=== PATIENT | female | born 1940 | race Hispanic/Latino ===

== ENCOUNTER 2018-09-29 02:30 | Emergency (ER) | payer MEDICARE, BC ==
[2018-09-29] MEDS ORDERED: cloNIDine 0.1 MG TAB ONE (03:10)
== END 2018-09-29 04:08 | disposition short-term general hospital (02) ==
LOC: ERS 02:30
DX: I10 Essential (primary) hypertension (principal); M06.9 Rheumatoid arthritis, unspecified; E78.5 Hyperlipidemia, unspecified; Z87.891 Personal history of nicotine dependence; Z79.899 Other long term (current) drug therapy; W06.XXXA Fall from bed, initial encounter
CPT/HCPCS: 99284

== ENCOUNTER 2018-10-19 13:55 | Outpatient (CLI) | payer MEDICARE, BC ==
[2018-10-19] MEDS ORDERED: Gadobenate Dimeglumine 529 MG/1 ML (20ML VIAL) ONE (14:44)
--- NOTE | 2018-10-19 16:13 | MRI ---
Brain MRI with and without contrast: 10/19/2018 COMPARISON: 02/02/2011: HISTORY: Weakness, altered mental status, possible convulsions. TECHNIQUE: Multiplanar multisequence MR imaging of the brain is obtained with and without contrast media FINDINGS: The diffusion weighted imaging demonstrates no evidence for acute infarction. Axial gradient echo imaging demonstrates no evidence for intracranial hemorrhage. There are numerous foci of increased T2 and FLAIR signal throughout the periventricular, deep, and curtis bcortical white matter, evidence of small vessel disease. There are focal areas of encephalomalacia involving the superior and lateral posterior left frontal lobe, evidence of remote infarction. Postcontrast imaging demonstrates no abnormal enhancement within the brain parenchyma. The imaged paranasal sinuses/mastoid air cells demonstrate opacification of the sphenoid sinus on the left, not well characterized on this examination, as seen on prior imaging. Arterial flow voids at the axial level of the skull base demonstrate a hypoplastic distal left verteb ral artery. 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 No acute infarction, intrac ranial hemorrhage, midline shift, mass effect, or abnormal enhancement. Transcribed Date/Time: 10/19/2018 4:19 PM
== END 2018-10-19 13:56 | disposition home or self-care (01) ==
LOC: BICMRI 13:55
PROVIDERS: ATTEND Nurse Practitioner Acute Care
DX: R53.1 Weakness (principal); R56.9 Unspecified convulsions; I73.9 Peripheral vascular disease, unspecified; I25.2 Old myocardial infarction
CPT/HCPCS: 70553; 82565; A9577

== ENCOUNTER 2019-08-18 02:23 | Emergency (ER) | payer MEDICARE, BC ==
[2019-08-18] MEDS ORDERED: Dextrose 50% Abboject 50 ML SYRINGE ONE (02:35)
[2019-08-18 02:56] LABS: #Lymphocytes 0.5 thou/uL (1.20-3.40); #Monocytes 0.3 thou/uL (0.11-0.59); #Neutrophils 7.1 thou/uL (1.40-6.50); %Eosinophils 0.2 % (0.0-10.0); %Lymphocytes 5.9 % (21.0-51.0); %Monocytes 3.7 % (0.0-10.0); %Neutrophils 90.1 % (42.0-75.0); Hemoglobin 11.1 g/dL (12.0-16.0); Mean Corpuscular HGB CONC 32.6 g/dL (32.0-36.0); Mean Corpuscular Hemoglobin 33.1 pg (27.0-31.0); Mean Platelet Volume 8.3 fL (7.4-10.4); Platelet Count 172 thou/uL (130-400); RBC Distribution Width 13.1 % (11.5-14.5); Red Blood Cell (RBC) Count 3.35 mill/uL (4.20-5.40); White Blood Cell (WBC) Count 7.9 thou/uL (4.8-10.8)
[2019-08-18 03:28] LABS: ALT (SGPT) 12 U/L (8-55); AST (SGOT) 21 U/L (5-34); Albumin 3.4 g/dL (3.4-4.8); Alkaline Phosphatase 67 U/L (40-110); Anion Gap 11 mmol/L (10-20); BUN (Urea Nitrogen) 18 mg/dL (9.8-20.1); Bilirubin, Total 0.2 mg/dL (0.2-1.2); Calc. Creatinine Clearance 0 mL/min (70-130); Carbon Dioxide 25 mmol/L (23-31); Chloride 102 mmol/L (98-107); Estimated GFR-MDRD 49; Globulin 3.3 g/dL (2.4-3.5); Glucose 274 mg/dL (83-110); Potassium 3.5 mmol/L (3.5-5.1); Protein, Total 6.7 g/dL (6.0-8.3); Sodium 134 mmol/L (136-145)
[2019-08-18 03:43] LABS: Bilirubin Negative (Negative); Blood, Urine 1+ (Negative); Clarity Clear (Clear); Glucose, Urine (Dipstick) 300 mg/dL (Negative); Leukocyte Negative Leu/uL (Negative); Nitrite Negative (Negative); Protein, Urine (Dipstick) 10 mg/dL (Neg-Trace); Squamous Epithelial None Seen HPF (0-3); Urobilinogen Normal mg/dL (Less than 2); WBC/HPF 0-3 HPF (0-3)
[2019-08-18 03:44] LABS: Bacteria/HPF Rare-Few HPF (None Seen)
== END 2019-08-18 05:52 | disposition home or self-care (01) ==
LOC: ERS 02:23
DX: E16.2 Hypoglycemia, unspecified (principal); I10 Essential (primary) hypertension; E78.5 Hyperlipidemia, unspecified; E78.00 Pure hypercholesterolemia, unspecified; Z87.891 Personal history of nicotine dependence; Z79.899 Other long term (current) drug therapy
CPT/HCPCS: 36415; 36416; 80053; 81003; 81015; 85025; 96374

== ENCOUNTER 2019-10-04 10:41 | Outpatient (CLI) | payer MEDICARE, BC ==
--- NOTE | 2019-10-04 14:43 | MRI ---
MRI LUMBAR SPINE NONCONTRAST: DATE: 10/04/2019 HISTORY: 79-year-old female with: ICD-10: S32.040G, compression fracture of L4 vertebra with delayed healing, subsequent encounter. COMPARISON: MRI of 03/11/2015. FINDINGS: There are five lumbar-type vertebrae. Bone marrow signal is heterogeneous. Some of this heterogeneity is due to multiple compression fractures. Areas of increased fatty marrow are consistent with osteop orosis. No obvious hematoma in the perivertebral spaces. Conus medullaris terminates at approximately L1-L2. T10-11: Moderate bilateral ligamentum flavum thickening causes mild central spinal canal stenosis. S agittal images demonstrates focal low signal intensity mass in the right neural foramen superiorly di splacing and impinging upon the exiting right T10 nerve root, probably representing a small focal far lateral disc herniation. This is difficult to visualize on the axial images. T11: New finding of diffuse hypointense signal abnormality involving almost the entire vertebral bod y on T2 WI and T1 WI. On the STIR sequence, the areas not involved by the hypointensities demonstrate s hyperintensity suggestive of marrow edema. There has been mild interval loss of height. At least so me of the very hypointense material in the vertebral body probably represents either vertebroplasty c ement or sclerosis. The rest of the T1 hypointense marrow signal throughout the vertebral body could represent infiltrative lesion such as metastasis or myeloma, or severe diffuse bone marrow edema of t he entire vertebral body. T11-12: No high grade central spinal canal stenosis. Moderate bilateral neural foraminal stenosis. T12: Again noted is the large deep Schmorl's node involving the upper end plate, almost reaching the inferior end plate. Mild diffuse bone marrow edema as demonstrated on the STIR sequence. Minimal bon y retropulsion of superior end plate. No major interval change in degree of loss of height. T12-L1: Bony retropulsion of L1 encroaches upon anterior aspect of spinal canal, causing mild centra l spinal canal stenosis, unchanged. Mild bilateral neural foraminal stenosis. L1: Deep broad indentation of superior end plate representing old burst fracture with overall approx imately 50% loss of height, unchanged. Small areas of bone marrow edema posteriorly and superiorly. N o major interval change overall. L1-2: Mild disc bulge. No central stenosis. Mild to moderate right neural foraminal stenosis. Mild l eft neural foraminal stenosis. L2: Vertebral body height maintained. Moderately heterogeneous bone marrow signal, slightly greater than previously. L2-3: Mild diffuse disc bulge. Mild to moderate right neural foraminal stenosis. Mild left neural fo raminal stenosis. Mild central spinal canal stenosis. L3: Increased fatty marrow signal. Shallow broad indentation of inferior end plate unchanged. Overal l mild to moderate loss of height. The bone marrow edema associated with the compression fracture dem onstrated in 2015, has now resolved. L3-4: Mild retrolisthesis of L3 on L4, plus broad based disc bulge-osteophytic bar complex, encroach es upon ventral aspect of spinal canal, unchanged. Overall degree of central spinal canal stenosis is mild to moderate. Previously, there was slightly prominent posterior epidural fat pad that caused a greater degree of thecal sac stenosis. Currently, the epidural fat pad has regressed, and there is le ss thecal sac stenosis now. Moderate right neural foraminal stenosis. Severe left neural foraminal st enosis, similar to prior MRI. L4: Interval worsening of loss of height of vertebral body. In addition to the deep Schmorl's node a t the superior end plate demonstrated previously, there is new broad indentation of inferior end plat e associated with hypointense T1 and T2 signal suggestive of sclerosis. New finding of diffuse bone m arrow edema involving the remaining component of superior aspect of the vertebral body. L4-5: Bilateral high grade facet DJD and interval worsening of ligamentum flavum thickening. Slight degenerative retrolisthesis of L4 on L5, and/or bony retropulsion of inferior end plate of L4, is a n ew finding since 2015. The above factors result in new finding of moderate to severe central spinal c anal stenosis. There is moderate right neural foraminal stenosis and severe left neural foraminal maxine nosis, with complete effacement of left neural foraminal fat, significantly compressing the exiting l eft L4 nerve root. There is also high grade lateral recess stenosis bilaterally. L5: Broad shallow indentation of inferior end plate is unchanged. Mild bone marrow edema, new or wor se compared to prior study. No interval change in loss of height. L5-S1: Moderate to severe right facet DJD and mild to moderate left facet DJD, unchanged. Large diff use disc bulge. The disc bulge extends into the bilateral neural foramina, chronically indenting the undersurfaces of the bilateral exiting L5 nerve roots, and contributing to moderate to severe right n eural foraminal stenosis and moderate left neural foraminal stenosis, either similar to or slightly w orse than previously. There is also lateral recess stenosis bilaterally, especially on the right. No high grade central spinal canal stenosis. IMPRESSION: 1. Multiple osteoporotic compression fractures. Many are old, but some have acute and/or subacute co mponents. 2. T11 vertebral body now has diffusely abnormal signal intensity. This could represent diffuse french re bone marrow edema or diffuse marrow infiltrative process such as myeloma or metastasis. There may or may not be vertebroplasty cement within it. 3. Interval development of compression/burst fracture of L4 with acute or subacute component. 4. Several levels of high grade neural foraminal stenosis. This is worst at L4-5 where there is french re left neural foraminal stenosis and significant impingement on the exiting left L4 nerve root, new since 03/11/2015. 5. Multilevel severe degenerative disc disease. 6. High grade central spinal canal stenosis at L4-5. 7. Lateral recess stenosis at some levels. LUZ Joe POS: JIN
== END 2019-10-04 10:42 | disposition home or self-care (01) ==
LOC: BICMRI 10:41
PROVIDERS: ATTEND Anesthesiology Pain Medicine
DX: M80.08XG Age-related osteoporosis with current pathological fracture, vertebra(e), subsequent encounter for fracture with delayed healing (principal); M51.36 Other intervertebral disc degeneration, lumbar region; M48.061 Spinal stenosis, lumbar region without neurogenic claudication
CPT/HCPCS: 72148

== ENCOUNTER 2019-12-08 08:47 | Outpatient (CLI) | payer MEDICARE, BC ==
--- NOTE | 2019-12-08 12:51 | PET ---
EXAM: PET CT skull apex to the feet COMPARISON: None HISTORY: Suspicious L4 lesion seen on CT. Evaluate for cancer TECHNIQUE: A PET/CT was performed from the apex of the skull through the feet after administration of 9.2 millicuries of F-18 FDG. Evaluation was performed on a [employer] workstation. FINDINGS: INTRACRANIAL: No areas of increased or decreased metabolic activity. Hypermetabolic activity along th e scalp is seen. NECK: No areas of hypermetabolic activity CHEST: There is hypermetabolic activity in the distal esophagus with a max SUV value of 9.2. ABDOMEN/PELVIS: The hypermetabolic activity in the distal esophagus continues to involve the proximal stomach below the diaphragm. No enlarged or hypermetabolic lymph nodes are seen in the chest or abdomen. SKELETON: No areas of hypermetabolic activity. The sclerotic lesion in the L4 vertebral body does not demonstrate hypermetabolic activity with a max SUV value of 2.0. LOWER EXTREMITIES: Hypermetabolic activity surrounding the right second toe metatarsophalangeal join t is seen. 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 CT images used for attenuation correction show atherosclerotic calcifications and diverticula in the colon. IMPRESSION: 1. Hypermetabolic activity in the distal esophagus could represent either esophagitis or esophageal m alignancy. Recommend upper endoscopy for direct visualization. 2. No evidence of malignancy in the L4 vertebral body 3. Hypermetabolic activity surrounding the right second toe could be secondary to osteomyelitis. Tae elate with sedimentation rate and white blood cell count. 4. Focal hypermetabolic activity in numerous spots in the scalp near the vertex may represent multipl e skin infections or lesions. Correlate with physical examination.
== END 2019-12-08 08:48 | disposition home or self-care (01) ==
LOC: PET 08:47
PROVIDERS: ATTEND Internal Medicine Hematology & Oncology
DX: R93.7 Abnormal findings on diagnostic imaging of other parts of musculoskeletal system (principal); C79.51 Secondary malignant neoplasm of bone; C80.1 Malignant (primary) neoplasm, unspecified
CPT/HCPCS: 78816; A9552

== ENCOUNTER 2020-07-24 13:26 | Outpatient (CLI) | payer MEDICARE, BC ==
--- NOTE | 2020-07-24 14:20 | RAD ---
THORACIC SPINE SERIES THREE VIEWS: 07/24/20 COMPARISON: CT examination of 11/23/19. The bones are severely demineralized. The T11 compression fracture has progressed as compared to prio r examination; now a vertebra plana deformity. There is cupping to multiple of the mid to lower thora cic vertebral body end plate without a definite new acute injury. Pedicles are intact. IMPRESSION: 1. Severe bony demineralization and arthritic change of the spine. 2. Multilevel compression changes of the end plates. There has been progression of the T11 compr ession change as compared to the previous CT exam. POS: HERNAN
--- NOTE | 2020-07-24 14:25 | RAD ---
LUMBAR SPINE SERIES TWO VIEWS: 07/24/20 HISTORY: Low back pain, Patient fell last night. COMPARISON: A CT examination of 11/23/19. Bones are severely demineralized. Marked degenerative disc narrowing is seen at L3-4 and the L5-S1 le shira. The compression changes at T11, T12, and L1 as well as L3 appear essentially stable with the exc eption of the T11 compression fracture which is now essentially a vertebra plana deformity. Cupping t o the superior end plate of T10 is noted. Degenerative facet changes are noted. Atherosclerotic ferrell es of the aorta. IMPRESSION: Severe bone demineralization. Marked arthritic changes of the spine. Multilevel lumbar compression ch anges stable as compared to the prior exam. There is increasing compression of the T11 vertebral body . POS: HERNAN
== END 2020-07-24 13:27 | disposition home or self-care (01) ==
LOC: SCSRAD 13:26
PROVIDERS: ATTEND Physician Assistant Medical
DX: M54.5 Low back pain (principal); M47.816 Spondylosis without myelopathy or radiculopathy, lumbar region; M47.814 Spondylosis without myelopathy or radiculopathy, thoracic region
CPT/HCPCS: 72072; 72100

== ENCOUNTER 2020-07-31 00:01 | Emergency (ER) | payer MEDICARE, BC ==
[2020-07-31] MEDS ORDERED: Labetalol HCl 100 MG/20 ML VIAL ONE (00:31)
[2020-07-31 01:02] LABS: Bacteria/HPF None Seen HPF (None Seen); Bilirubin Negative (Negative); Blood, Urine Negative (Negative); Clarity Clear (Clear); Glucose, Urine (Dipstick) Normal (Negative); Ketone, Urine Negative (Negative); Leukocyte 250 Leu/uL (Negative); Nitrite Negative (Negative); Protein, Urine (Dipstick) 10 mg/dL (Neg-Trace); RBC/HPF 0-3 HPF (0-3); Specific Gravity, Urine 1.021 (1.002-1.036); Urobilinogen Normal mg/dL (Less than 2)
[2020-07-31] MEDS ORDERED: HYDROcodone/Acetaminophen 10/325 mg Tablet ONE (01:29)
[2020-07-31] MEDS ORDERED: Orphenadrine Citrate 60 MG/2 ML VIAL IM SCH (03:00)
[2020-07-31] MEDS ORDERED: Lidocaine 5% Patch TD SCH (03:00)
--- NOTE | 2020-07-31 07:28 | RAD ---
FOUR VIEWS RIGHT KNEE: HISTORY: Fall. Pain. FINDINGS: There appears to be a nondisplaced remote fracture involving the superior aspect of the patella. The re is diffuse bone demineralization. Joint spaces are preserved. No significant joint effusion. Un complicated arthroplasty. IMPRESSION: Possible nondisplaced remote fracture involving the superior aspect of the patella. CODE T POS: PPP
--- NOTE | 2020-07-31 09:10 | CT ---
PRELIMINARY REPORT/[facility]/EMERGENCY AFTER HOURS PROCEDURE: EXAM: CT Lumbar Spine Without Intravenous Contrast. CLINICAL HISTORY: PREEXISTING COMPRESSION FX T11. SITTING ON FOOT OF BED WHEN SHE FELT BACK PAIN AND ROCKED BACK ONTO BED. SHARP PAIN IN BACK AND RIGHT KNEE AT THE SAME TIME. NO TRAUMATIC EVENT. TECHNIQUE: Axial computed tomography images of the lumbar spine without intravenous contrast. Sagitta l and coronal reformations performed. COMPARISON: CT\SR - CT LUMBAR SPINE WO CON - 07/03/2015 12:54 PM [employer] FINDINGS: BONES: Stable compression fracture deformities of T10, T12, L1, L3, and L4. Marked new osteolysis of T11 which appears to reflect an ununited hyperextension fracture deformity. Worsened osteolysis of L4. Fracture deformity of the spinous process of T11 is new when compared to p rior but well corticated, indicating that it is old. Osteopenia. Degenerative changes and fracture deformities resulting in varying degrees of central canal and neura l foraminal stenosis. SOFT TISSUES: Cardiomegaly. Large hiatal hernia. Bilateral nonobstructing renal calculi. Diverticulos is. No evidence of diverticulitis. therosclerosis. IMPRESSION: 1. Stable compression fracture deformities of T10, T12, L1, L3, and L4. 2. Marked new osteolysis of T11 which appears to reflect an ununited hyperextension fracture deformit y. 3. Worsened osteolysis of L4. 4. Fracture deformity of the spinous process of T11 is new when compared to prior but well corticated , indicating that it is old. 5. Osteopenia. 6. Degenerative changes and fracture deformities resulting in varying degrees of central canal and ne ural foraminal stenosis. 7. Cardiomegaly. 8. Large hiatal hernia. 9. Bilateral nonobstructing renal calculi. 10. Diverticulosis. No evidence of diverticulitis. 11. Atherosclerosis. ELECTRONICALLY SIGNED BY: Lucius Mc MD Jul 31, 2020 1:26:24 AM [employer] FINAL REPORT LUMBAR SPINE CT WITHOUT CONTRAST: HISTORY: Pre-existing T11 fracture. Status post fall. Pain. COMPARISON: Lumbar spine CT 11/23/2019. FINDINGS: There is progression of loss of vertebral body height at T11. There appears to be a distraction of t he T11 vertebral body. There is stable loss of vertebral body height at T12, L1. There is stable ne ar-complete fusion of the L3-L4 disk space. There is no spondylolisthesis or spondylolysis. Visualized sacrum and bony pelvis are intact. Overall, there is diffuse bone demineralization. Atelectatic changes and scarring in the lung bases. Hyperdense material in the GE junction is identified and is of uncertain significance. Visualized solid organs do not demonstrate any posttraumatic change. There are diverticula present. There is mucosal prominence at the colon. Normal-caliber appendix. There are varying degrees of ce ntral canal stenosis and foraminal narrowing throughout the lumbar spine. Technique limits evaluatio n. There is moderate central canal stenosis at T11 predominantly due to retropulsion. Mild to moder ate central canal stenosis at T12 and L1 due to retropulsion. Moderate central canal stenosis at L3- L4 due to degenerative disk disease. Moderate to severe central canal stenosis at L4-L5 due to broad -based disk bulge, ligamentum flavum thickening, and facet hypertrophy. Similar findings at L5-S1. There is vacuum disk phenomenon at L5-S1. There is a remote fracture involving the spinous process o f T11 with sclerosis of the fracture margin. IMPRESSION: 1. This report is in agreement with the preliminary report by [facility]. 2. Multiple stable compression fractures at T11, T12, L1. Stable degenerative changes at L3-L4. 3. Persistent distraction of the T11 vertebral body, likely due to hyperextension injury. There is associated decreased mineralization of the T11 vertebral body. 4. Osteopenia. 5. Mucosal prominence of the sigmoid colon. Nonemergent colonoscopy is recommended. CODE T POS: PPP
[2020-07-31] MEDS ORDERED: Lidocaine Patch Removal TOP SCH (15:00)
== END 2020-07-31 03:30 | disposition home or self-care (01) ==
LOC: ERS 00:01
DX: S22.079A Unspecified fracture of T9-T10 vertebra, initial encounter for closed fracture (principal); S22.089A Unspecified fracture of T11-T12 vertebra, initial encounter for closed fracture; S32.019A Unspecified fracture of first lumbar vertebra, initial encounter for closed fracture; S32.049A Unspecified fracture of fourth lumbar vertebra, initial encounter for closed fracture; S32.039A Unspecified fracture of third lumbar vertebra, initial encounter for closed fracture; M89.58 Osteolysis, other site; K57.31 Diverticulosis of large intestine without perforation or abscess with bleeding; M25.561 Pain in right knee; I10 Essential (primary) hypertension; E78.5 Hyperlipidemia, unspecified; E78.00 Pure hypercholesterolemia, unspecified; Z87.891 Personal history of nicotine dependence; Z79.82 Long term (current) use of aspirin; Z79.899 Other long term (current) drug therapy; W01.0XXA Fall on same level from slipping, tripping and stumbling without subsequent striking against object, initial encounter
CPT/HCPCS: 72131; 81003; 81015; 96372; J2360

== ENCOUNTER 2020-08-19 16:07 | Inpatient (IN) | payer MEDICARE, BC ==
[2020-08-19] MEDS ORDERED: HYDROcodone/Acetaminophen 10/325 mg Tablet PO PRN (16:37)
[2020-08-19] MEDS ORDERED: Milk Of Magnesia 30 ML UDCUP PO PRN (16:37)
[2020-08-19 17:00] LABS: PTT 27.1 sec (22.9-36.1); Prothrombin Time 12.9 sec (12.0-14.7)
[2020-08-19 17:13] LABS: Anion Gap 14 mmol/L (10-20); BUN (Urea Nitrogen) 19 mg/dL (9.8-20.1); Calc. Creatinine Clearance 0 mL/min (70-130); Calcium 9.3 mg/dL (7.8-10.44); Carbon Dioxide 27 mmol/L (23-31); Chloride 100 mmol/L (98-107); Glucose 110 mg/dL (83-110); Potassium 3.8 mmol/L (3.5-5.1); Sodium 137 mmol/L (136-145)
[2020-08-19 17:22] LABS: Hemoglobin 11.7 g/dL (12.0-16.0); Mean Corpuscular HGB CONC 32.5 g/dL (32.0-36.0); Mean Corpuscular Hemoglobin 35.5 pg (27.0-31.0); Mean Platelet Volume 7.1 fL (7.4-10.4); Platelet Count 217 thou/uL (130-400); RBC Distribution Width 18.5 % (11.5-14.5); Red Blood Cell (RBC) Count 3.29 mill/uL (4.20-5.40); White Blood Cell (WBC) Count 5.7 thou/uL (4.8-10.8)
[2020-08-19 17:23] LABS: #Basophils 0.1 thou/uL (0.0-0.2); #Eosinphils 0.1 thou/uL (0.0-0.7); #Monocytes 0.6 thou/uL (0.11-0.59); #Neutrophils 2.8 thou/uL (1.40-6.50); %Basophils 1.3 % (0.0-1.0); %Eosinophils 1.1 % (0.0-10.0); %Lymphocytes 36.2 % (21.0-51.0); %Monocytes 11.3 % (0.0-10.0); %Neutrophils 50.2 % (42.0-75.0)
[2020-08-19 17:24] LABS: Anisocytosis SLIGHT = 6-15 cells (100X) (0-5/hpf); MDiff Complete? YES; Macrocytosis SLIGHT = 6-15 cells (100X) (0-5/hpf); Platelet Morphology Comment Appears Adequate
[2020-08-19] MEDS ORDERED: Morphine 2 MG/ML VIAL ONE (17:30)
[2020-08-19 20:08] VITALS: BMI 24.0
[2020-08-19] MEDS ORDERED: Docusate 100 MG CAP PO PRN (21:55)
[2020-08-19] MEDS ORDERED: DULoxetine 30 MG CAP PO SCH (22:00)
[2020-08-19] MEDS ORDERED: lamoTRIgine 100 MG TAB PO SCH (22:00)
[2020-08-19] MEDS ORDERED: Hydrocortisone 10 mg Tablet PO SCH (22:00)
[2020-08-19] MEDS: HYDROcodone/Acetaminophen 7.5/325 mg Tablet PO PRN (22:27)
[2020-08-19] MEDS ORDERED: Atorvastatin Calcium 40 MG TAB PO SCH (22:30)
[2020-08-19] MEDS: Sodium Chloride 0.9% 1,000 ML IV SCH (22:32)
[2020-08-20] MEDS: traMADol HCl 50 MG TAB PO PRN (01:36)
[2020-08-20] MEDS: tiZANidine HCl 4 MG TAB PO PRN (01:36)
[2020-08-20 04:38] LABS: SARS-CoV-2 PCR by NAA Not Detected (NotDetected)
[2020-08-20] MEDS: Sodium Chloride 0.9% 1,000 ML IV SCH ×2 (06:07→20:13)
[2020-08-20] MEDS ORDERED: Non-Formulary Item 1 EACH (Docusate Sodium [Stool Softener] 100 MG Tablet) PO PRN (06:16)
[2020-08-20] MEDS ORDERED: Non-Formulary Item 1 EACH (Methocarbamol [Methocarbamol] 750 MG Tablet) PO PRN (06:16)
[2020-08-20] MEDS ORDERED: Non-Formulary Item 1 EACH (Buprenorphine Hcl [Belbuca] 450 MCG Film) BUC SCH (06:30)
[2020-08-20] MEDS ORDERED: Methocarbamol 500 MG TAB PO PRN (06:33)
[2020-08-20] MEDS ORDERED: Hydrocortisone 10 mg Tablet PO SCH ×3 (07:00→09:00)
[2020-08-20] MEDS ORDERED: Folic Acid 1 MG TAB PO SCH (09:00)
[2020-08-20] MEDS: Docusate 100 MG CAP PO PRN (09:00)
[2020-08-20] MEDS ORDERED: Buprenorphine Hcl [Belbuca] 450 MCG Film SL SCH (09:00)
[2020-08-20] MEDS ORDERED: Non-Formulary Item 1 EACH (Omeprazole [Omeprazole] 40 MG Capsule.Dr) PO SCH (09:00)
[2020-08-20] MEDS ORDERED: Lisinopril 10 MG TAB PO SCH (09:00)
[2020-08-20] MEDS ORDERED: Ergocalciferol 1.25 MG(50,000 UNITS) CAP PO SCH (09:00)
[2020-08-20] MEDS: HYDROcodone/Acetaminophen 7.5/325 mg Tablet PO PRN ×2 (09:01→19:34)
[2020-08-20] MEDS: Ergocalciferol 1.25 MG(50,000 UNITS) CAP PO SCH (09:02)
[2020-08-20] MEDS: Lisinopril 10 MG TAB PO SCH (09:03)
[2020-08-20] MEDS: Folic Acid 1 MG TAB PO SCH (09:03)
[2020-08-20] MEDS ORDERED: Chlorhexidine Gluconate 15 ML UDCUP SSP ONE (18:36)
[2020-08-20] MEDS ORDERED: Mineral Oil Sterile 10ML 10 ML UDCUP ONE (18:37)
[2020-08-20] MEDS: Mag-Al 1200 mg/1200 mg/30 ML UDCUP PO PRN (19:34)
[2020-08-20] MEDS: Hydrocortisone 10 mg Tablet PO SCH (20:04)
[2020-08-20] MEDS: lamoTRIgine 100 MG TAB PO SCH (20:05)
[2020-08-20] MEDS: Atorvastatin Calcium 40 MG TAB PO SCH (20:05)
[2020-08-20] MEDS: DULoxetine 30 MG CAP PO SCH (20:05)
[2020-08-20] MEDS ORDERED: lamoTRIgine 100 MG TAB PO SCH (21:00)
[2020-08-20] MEDS ORDERED: DULoxetine 30 MG CAP PO SCH (21:00)
[2020-08-20] MEDS ORDERED: Atorvastatin Calcium 40 MG TAB PO SCH (21:00)
[2020-08-20] MEDS ORDERED: Non-Formulary Item 1 EACH (Simvastatin [Simvastatin] 80 MG Tablet) PO SCH (21:00)
[2020-08-21] MEDS: Mag-Al 1200 mg/1200 mg/30 ML UDCUP PO PRN (01:54)
[2020-08-21] MEDS: Sodium Chloride 0.9% 1,000 ML IV SCH ×2 (01:57→21:10)
[2020-08-21] MEDS ORDERED: Thrombin 5000 UNITS/5 ML VIAL ONE (06:40)
[2020-08-21] MEDS ORDERED: Clindamycin/D5W 900 mg/50 ml Premix Bag ONE (07:23)
[2020-08-21] MEDS ORDERED: Fentanyl 250 MCG/5 ML VIAL ONE (07:35)
[2020-08-21] MEDS ORDERED: Dexmedetomidine 200 MCG/2 ML VIAL ONE (07:36)
[2020-08-21] MEDS ORDERED: Albumin 5% 500 ML ONE (07:36)
[2020-08-21] MEDS ORDERED: Ketamine 50 MG/ML (10ML VIAL) ONE (07:36)
[2020-08-21] MEDS ORDERED: Vancomycin 1 GM/200 ML BAG ONE (07:39)
[2020-08-21] MEDS ORDERED: Famotidine/PF 20 mg/2ml Vial ONE (08:04)
[2020-08-21] MEDS ORDERED: Vecuronium 10 MG VIAL ONE (08:04)
[2020-08-21] MEDS ORDERED: Ondansetron PF 4 MG/2 ML Vial ONE (09:00)
[2020-08-21] MEDS ORDERED: Rocuronium Bromide 10 MG/ML (10ML VIAL) ONE (09:00)
[2020-08-21] MEDS ORDERED: Esmolol 100 MG/10 ML VIAL ONE (09:00)
[2020-08-21] MEDS ORDERED: Labetalol HCl 100 MG/20 ML VIAL ONE ×2 (09:00→14:01)
[2020-08-21] MEDS ORDERED: Lidocaine 1% PF 5 ML VIAL ONE (09:00)
[2020-08-21] MEDS ORDERED: PROPOFOL 200 MG/20 ML VIAL ONE (09:00)
[2020-08-21] MEDS ORDERED: Dexamethasone 20 MG/5 ML VIAL ONE (09:00)
[2020-08-21] MEDS ORDERED: SUGAMMADEX SODIUM 200 MG/2 ML VIAL ONE (12:16)
[2020-08-21] MEDS ORDERED: Fentanyl 100 MCG/2 ML VIAL ONE ×4 (13:41→14:51)
[2020-08-21] MEDS ORDERED: PACU-Morphine 4MG/ML VIAL SLOW IVP PRN (13:55)
[2020-08-21] MEDS ORDERED: HYDROmorphone 2 MG/ML VIAL SLOW IVP PRN (13:55)
[2020-08-21] MEDS ORDERED: Ondansetron HCl/PF 4 MG/2 ML Vial IVP PRN (13:55)
[2020-08-21] MEDS ORDERED: Morphine Sulfate 2 MG/ML SYRINGE SLOW IVP PRN (13:55)
[2020-08-21] MEDS ORDERED: Promethazine HCl 25 MG/ML VIAL IM PRN (13:55)
[2020-08-21] MEDS ORDERED: Promethazine HCl 25 MG/ML VIAL SLOW IVP PRN (13:55)
[2020-08-21] MEDS ORDERED: hydrALAZINE 20 MG/ML VIAL SLOW IVP SCH (14:00)
[2020-08-21] MEDS ORDERED: hydrALAZINE 20 MG/ML VIAL ONE (14:31)
[2020-08-21] MEDS ORDERED: Morphine 4 MG/ML VIAL ONE (14:50)
[2020-08-21] MEDS ORDERED: Morphine 2 MG/ML VIAL ONE ×3 (15:48→16:11)
[2020-08-21] MEDS: Folic Acid 1 MG TAB PO SCH (16:37)
[2020-08-21] MEDS: Lisinopril 10 MG TAB PO SCH (16:37)
[2020-08-21] MEDS: Hydrocortisone 10 mg Tablet PO SCH ×2 (16:37→21:08)
[2020-08-21] MEDS: Morphine 2 MG/ML VIAL SLOW IVP PRN ×2 (16:44→23:48)
[2020-08-21] MEDS: traMADol HCl 50 MG TAB PO PRN (16:44)
[2020-08-21] MEDS: Clindamycin/D5W 900 MG in Premix Bag 1 BAG IVPB SCH ×2 (16:45→23:53)
[2020-08-21] MEDS: HYDROcodone/Acetaminophen 7.5/325 mg Tablet PO PRN ×2 (17:47→23:48)
[2020-08-21] MEDS: lamoTRIgine 100 MG TAB PO SCH (21:08)
[2020-08-21] MEDS: Atorvastatin Calcium 40 MG TAB PO SCH (21:08)
[2020-08-21] MEDS: DULoxetine 30 MG CAP PO SCH (21:08)
[2020-08-21] MEDS: Senokot S 8.6-50 MG TAB PO SCH (21:09)
[2020-08-21] MEDS: Acetaminophen/Codeine 30-300mg Tablet PO PRN (21:09)
[2020-08-21] MEDS: Vancomycin 1 GM in Premix Bag 1 BAG IVPB SCH (21:09)
[2020-08-22] MEDS: HYDROcodone/Acetaminophen 7.5/325 mg Tablet PO PRN (06:03)
[2020-08-22 08:34] LABS: #Neutrophils 7.1 thou/uL (1.40-6.50); %Basophils 0.1 % (0.0-1.0); %Lymphocytes 10.9 % (21.0-51.0); %Monocytes 10.9 % (0.0-10.0); Hemoglobin 8.8 g/dL (12.0-16.0); Mean Corpuscular HGB CONC 32.7 g/dL (32.0-36.0); Mean Corpuscular Hemoglobin 36.2 pg (27.0-31.0); Mean Platelet Volume 6.7 fL (7.4-10.4); Platelet Count 182 thou/uL (130-400); RBC Distribution Width 18.5 % (11.5-14.5); Red Blood Cell (RBC) Count 2.44 mill/uL (4.20-5.40)
[2020-08-22] MEDS: Morphine 2 MG/ML VIAL SLOW IVP PRN ×2 (08:52→11:44)
[2020-08-22 08:53] LABS: Anion Gap 9 mmol/L (10-20); BUN (Urea Nitrogen) 9 mg/dL (9.8-20.1); Calc. Creatinine Clearance 66 mL/min (70-130); Calcium 7.2 mg/dL (7.8-10.44); Carbon Dioxide 25 mmol/L (23-31); Chloride 104 mmol/L (98-107); Glucose 113 mg/dL (83-110); Potassium 3.9 mmol/L (3.5-5.1); Sodium 134 mmol/L (136-145)
[2020-08-22] MEDS: Enoxaparin Sodium 40 MG/0.4 ML SYRINGE SC SCH (08:59)
[2020-08-22 09:00] LABS: Hypersemented Neutrophil SLIGHT
[2020-08-22] MEDS: Senokot S 8.6-50 MG TAB PO SCH ×2 (09:00→20:20)
[2020-08-22] MEDS: Folic Acid 1 MG TAB PO SCH (09:00)
[2020-08-22] MEDS: Saccharomyces boulardii 250 MG CAP PO SCH (09:00)
[2020-08-22] MEDS: Lisinopril 10 MG TAB PO SCH (09:02)
[2020-08-22] MEDS: Hydrocortisone 10 mg Tablet PO SCH ×2 (09:02→20:32)
[2020-08-22] MEDS: Clindamycin/D5W 900 MG in Premix Bag 1 BAG IVPB SCH ×2 (09:03→15:31)
[2020-08-22 09:18] LABS: MDiff Complete? YES; Macrocytosis MODERATE=16-30 cells (100X) (0-5/hpf); Platelet Morphology Comment Appears Adequate; Polychromasia SLIGHT = 2-3 cells (100X) (0-2/hpf)
[2020-08-22] MEDS: traMADol HCl 50 MG TAB PO PRN (10:40)
[2020-08-22] MEDS: Vancomycin 1 GM in Premix Bag 1 BAG IVPB SCH ×2 (10:41→20:17)
[2020-08-22] MEDS: Mag-Al 1200 mg/1200 mg/30 ML UDCUP PO PRN ×2 (11:45→15:31)
[2020-08-22] MEDS: Acetaminophen/Codeine 30-300mg Tablet PO PRN ×2 (14:03→20:18)
[2020-08-22] MEDS: Sodium Chloride 0.9% 1,000 ML IV SCH (15:33)
[2020-08-22] MEDS: Calcium Carbonate 600 MG + Vit D TAB PO SCH (18:24)
[2020-08-22] MEDS: lamoTRIgine 100 MG TAB PO SCH (20:18)
[2020-08-22] MEDS: Atorvastatin Calcium 40 MG TAB PO SCH (20:18)
[2020-08-22] MEDS: DULoxetine 30 MG CAP PO SCH (20:20)
[2020-08-23] MEDS: Clindamycin/D5W 900 MG in Premix Bag 1 BAG IVPB SCH ×4 (00:33→23:29)
[2020-08-23] MEDS: Morphine 2 MG/ML VIAL SLOW IVP PRN ×3 (00:41→09:36)
[2020-08-23] MEDS: Sodium Chloride 0.9% 1,000 ML IV SCH ×3 (01:59→20:00)
[2020-08-23] MEDS: Acetaminophen/Codeine 30-300mg Tablet PO PRN (03:27)
[2020-08-23] MEDS: Mag-Al 1200 mg/1200 mg/30 ML UDCUP PO PRN ×2 (03:37→10:15)
[2020-08-23 05:45] LABS: Anion Gap 10 mmol/L (10-20); BUN (Urea Nitrogen) 7 mg/dL (9.8-20.1); Calc. Creatinine Clearance 69 mL/min (70-130); Calcium 7.1 mg/dL (7.8-10.44); Carbon Dioxide 23 mmol/L (23-31); Chloride 102 mmol/L (98-107); Glucose 134 mg/dL (83-110); Magnesium 1.7 mg/dL (1.6-2.6); Potassium 3.4 mmol/L (3.5-5.1); Sodium 132 mmol/L (136-145)
[2020-08-23 05:48] LABS: Phosphorus 1.6 mg/dL (2.3-4.7)
[2020-08-23] MEDS ORDERED: Potassium Chloride 20 MEQ TAB PO SCH (06:30)
[2020-08-23] MEDS ORDERED: Electrolyte Replacement Protocol FS PRN (06:30)
[2020-08-23] MEDS: PHOS-NAK 1 PKT PACK PO SCH ×2 (06:42→09:49)
[2020-08-23] MEDS ORDERED: Magnesium 2 GM/50 ML 2 GM in Premix Bag 1 BAG IVPB SCH (06:45)
[2020-08-23] MEDS: Lisinopril 10 MG TAB PO SCH (09:44)
[2020-08-23] MEDS: Senokot S 8.6-50 MG TAB PO SCH ×2 (09:44→19:55)
[2020-08-23] MEDS: Saccharomyces boulardii 250 MG CAP PO SCH (09:44)
[2020-08-23] MEDS: Calcium Carbonate 600 MG + Vit D TAB PO SCH ×2 (09:48→15:17)
[2020-08-23] MEDS: Folic Acid 1 MG TAB PO SCH (09:48)
[2020-08-23] MEDS: Vancomycin 1 GM in Premix Bag 1 BAG IVPB SCH ×2 (09:49→20:29)
[2020-08-23] MEDS: Enoxaparin Sodium 40 MG/0.4 ML SYRINGE SC SCH (09:50)
[2020-08-23] MEDS: tiZANidine HCl 4 MG TAB PO PRN (09:54)
[2020-08-23] MEDS: Hydrocortisone 10 mg Tablet PO SCH ×2 (09:56→19:55)
[2020-08-23 11:46] LABS: #Lymphocytes 1.1 thou/uL (1.20-3.40); #Monocytes 0.8 thou/uL (0.11-0.59); #Neutrophils 5.2 thou/uL (1.40-6.50); %Basophils 0.4 % (0.0-1.0); %Eosinophils 0.3 % (0.0-10.0); %Lymphocytes 14.9 % (21.0-51.0); %Monocytes 11.6 % (0.0-10.0); %Neutrophils 72.8 % (42.0-75.0); Mean Corpuscular HGB CONC 32.6 g/dL (32.0-36.0); Mean Corpuscular Hemoglobin 35.9 pg (27.0-31.0); Mean Platelet Volume 7.2 fL (7.4-10.4); Platelet Count 199 thou/uL (130-400); RBC Distribution Width 18.3 % (11.5-14.5); Red Blood Cell (RBC) Count 2.23 mill/uL (4.20-5.40); White Blood Cell (WBC) Count 7.1 thou/uL (4.8-10.8)
[2020-08-23] MEDS ORDERED: Morphine 2 MG/ML VIAL SLOW IVP PRN (11:55)
[2020-08-23 12:16] LABS: Anion Gap 13 mmol/L (10-20); BUN (Urea Nitrogen) 6 mg/dL (9.8-20.1); Calc. Creatinine Clearance 72 mL/min (70-130); Calcium 7.2 mg/dL (7.8-10.44); Carbon Dioxide 21 mmol/L (23-31); Chloride 102 mmol/L (98-107); Glucose 123 mg/dL (83-110); Potassium 3.9 mmol/L (3.5-5.1); Sodium 132 mmol/L (136-145)
[2020-08-23 12:44] LABS: Anisocytosis SLIGHT = 6-15 cells (100X) (0-5/hpf); Basophilic Stippling SLIGHT = 1-2 cells (100X) (None Seen); MDiff Complete? YES; Macrocytosis SLIGHT = 6-15 cells (100X) (0-5/hpf); Platelet Morphology Comment Appears Adequate; Polychromasia SLIGHT = 2-3 cells (100X) (0-2/hpf)
[2020-08-23] MEDS: Polyethylene Glycol 3350 17 GM Packet PO PRN (17:36)
[2020-08-23] MEDS: Atorvastatin Calcium 40 MG TAB PO SCH (19:55)
[2020-08-23] MEDS: lamoTRIgine 100 MG TAB PO SCH (19:56)
[2020-08-23] MEDS: DULoxetine 30 MG CAP PO SCH (19:56)
[2020-08-23] MEDS: oxyCODONE/Acetaminophen 5 mg/325 mg Tablet PO PRN (19:56)
[2020-08-23] MEDS ORDERED: Simethicone Chewable 80 MG TAB PO SCH (20:30)
[2020-08-23] MEDS: Bisacodyl 10 MG SUPP PR PRN (22:31)
[2020-08-23] MEDS: Methocarbamol 500 MG TAB PO PRN (22:54)
[2020-08-24] MEDS: oxyCODONE/Acetaminophen 5 mg/325 mg Tablet PO PRN ×4 (01:50→21:22)
[2020-08-24] MEDS: Methocarbamol 500 MG TAB PO PRN ×3 (03:26→17:14)
[2020-08-24 06:17] LABS: Anion Gap 11 mmol/L (10-20); BUN (Urea Nitrogen) 8 mg/dL (9.8-20.1); Calc. Creatinine Clearance 62 mL/min (70-130); Calcium 6.5 mg/dL (7.8-10.44); Carbon Dioxide 24 mmol/L (23-31); Chloride 103 mmol/L (98-107); Glucose 107 mg/dL (83-110); Magnesium 2.4 mg/dL (1.6-2.6); Sodium 134 mmol/L (136-145)
[2020-08-24 06:23] LABS: Phosphorus 1.9 mg/dL (2.3-4.7)
[2020-08-24] MEDS: Vancomycin 1 GM in Premix Bag 1 BAG IVPB SCH ×2 (08:06→20:06)
[2020-08-24] MEDS: PHOS-NAK 1 PKT PACK PO SCH ×2 (08:06→12:10)
[2020-08-24] MEDS: Folic Acid 1 MG TAB PO SCH (08:07)
[2020-08-24] MEDS: Senokot S 8.6-50 MG TAB PO SCH ×2 (08:07→20:06)
[2020-08-24] MEDS: Calcium Carbonate 600 MG + Vit D TAB PO SCH ×2 (08:07→17:13)
[2020-08-24] MEDS: Hydrocortisone 10 mg Tablet PO SCH ×2 (08:07→20:05)
[2020-08-24] MEDS: Saccharomyces boulardii 250 MG CAP PO SCH (08:07)
[2020-08-24] MEDS: Clindamycin/D5W 900 MG in Premix Bag 1 BAG IVPB SCH ×2 (08:07→14:52)
[2020-08-24] MEDS: Enoxaparin Sodium 40 MG/0.4 ML SYRINGE SC SCH (08:08)
[2020-08-24 08:37] LABS: #Lymphocytes 1.3 thou/uL (1.20-3.40); #Neutrophils 4.8 thou/uL (1.40-6.50); %Basophils 0.3 % (0.0-1.0); %Eosinophils 0.4 % (0.0-10.0); %Lymphocytes 17.7 % (21.0-51.0); %Monocytes 13.8 % (0.0-10.0); %Neutrophils 67.9 % (42.0-75.0); Hemoglobin 7.7 g/dL (12.0-16.0); Mean Corpuscular HGB CONC 33.8 g/dL (32.0-36.0); Mean Corpuscular Hemoglobin 37.2 pg (27.0-31.0); Mean Platelet Volume 6.7 fL (7.4-10.4); Platelet Count 173 thou/uL (130-400); RBC Distribution Width 18.1 % (11.5-14.5); Red Blood Cell (RBC) Count 2.06 mill/uL (4.20-5.40); White Blood Cell (WBC) Count 7.1 thou/uL (4.8-10.8)
[2020-08-24] MEDS: Acetaminophen 325 MG TAB PO PRN ×2 (11:42→17:14)
[2020-08-24] MEDS: Sodium Chloride 0.9% 1,000 ML IV SCH (17:18)
[2020-08-24] MEDS: DULoxetine 30 MG CAP PO SCH (20:05)
[2020-08-24] MEDS: Atorvastatin Calcium 40 MG TAB PO SCH (20:05)
[2020-08-24] MEDS: lamoTRIgine 100 MG TAB PO SCH (20:05)
[2020-08-25] MEDS: Acetaminophen 325 MG TAB PO PRN ×3 (00:03→11:25)
[2020-08-25] MEDS: Clindamycin/D5W 900 MG in Premix Bag 1 BAG IVPB SCH ×3 (00:03→17:18)
[2020-08-25] MEDS: Methocarbamol 500 MG TAB PO PRN ×3 (00:04→17:07)
[2020-08-25] MEDS: oxyCODONE/Acetaminophen 5 mg/325 mg Tablet PO PRN ×4 (03:06→21:52)
[2020-08-25] MEDS: Sodium Chloride 0.9% 1,000 ML IV SCH ×2 (05:17→17:16)
[2020-08-25] MEDS: Senokot S 8.6-50 MG TAB PO SCH ×2 (08:21→20:43)
[2020-08-25] MEDS: Hydrocortisone 10 mg Tablet PO SCH ×2 (08:21→20:42)
[2020-08-25] MEDS: Enoxaparin Sodium 40 MG/0.4 ML SYRINGE SC SCH (08:21)
[2020-08-25] MEDS: Saccharomyces boulardii 250 MG CAP PO SCH (08:22)
[2020-08-25] MEDS: Folic Acid 1 MG TAB PO SCH (08:22)
[2020-08-25] MEDS: Calcium Carbonate 600 MG + Vit D TAB PO SCH ×2 (08:22→17:07)
[2020-08-25] MEDS: Vancomycin 1 GM in Premix Bag 1 BAG IVPB SCH ×2 (08:59→20:42)
[2020-08-25] MEDS: Bisacodyl 10 MG SUPP PR PRN (18:40)
[2020-08-25] MEDS: Atorvastatin Calcium 40 MG TAB PO SCH (20:43)
[2020-08-25] MEDS: DULoxetine 30 MG CAP PO SCH (20:43)
[2020-08-25] MEDS: lamoTRIgine 100 MG TAB PO SCH (20:43)
[2020-08-26] MEDS: Methocarbamol 500 MG TAB PO PRN ×3 (01:57→16:24)
[2020-08-26] MEDS: hydrALAZINE 20 MG/ML VIAL SLOW IVP PRN (03:27)
[2020-08-26] MEDS: Acetaminophen 325 MG TAB PO PRN ×3 (04:06→22:09)
[2020-08-26] MEDS: oxyCODONE/Acetaminophen 5 mg/325 mg Tablet PO PRN ×4 (04:55→22:09)
[2020-08-26 05:39] LABS: #Lymphocytes 0.9 thou/uL (1.20-3.40); #Monocytes 0.6 thou/uL (0.11-0.59); #Neutrophils 5.1 thou/uL (1.40-6.50); %Basophils 0.1 % (0.0-1.0); %Eosinophils 0.3 % (0.0-10.0); %Lymphocytes 14.1 % (21.0-51.0); %Monocytes 8.4 % (0.0-10.0); %Neutrophils 77.1 % (42.0-75.0); Hemoglobin 9.8 g/dL (12.0-16.0); Mean Corpuscular HGB CONC 33.1 g/dL (32.0-36.0); Mean Corpuscular Hemoglobin 34.4 pg (27.0-31.0); Mean Platelet Volume 7.2 fL (7.4-10.4); Platelet Count 253 thou/uL (130-400); RBC Distribution Width 18.7 % (11.5-14.5); Red Blood Cell (RBC) Count 2.85 mill/uL (4.20-5.40); White Blood Cell (WBC) Count 6.7 thou/uL (4.8-10.8)
[2020-08-26 05:59] LABS: Anion Gap 12 mmol/L (10-20); BUN (Urea Nitrogen) 9 mg/dL (9.8-20.1); Calc. Creatinine Clearance 70 mL/min (70-130); Calcium 7.2 mg/dL (7.8-10.44); Carbon Dioxide 24 mmol/L (23-31); Chloride 100 mmol/L (98-107); Glucose 110 mg/dL (83-110); Phosphorus 1.4 mg/dL (2.3-4.7); Potassium 3.7 mmol/L (3.5-5.1); Sodium 132 mmol/L (136-145)
[2020-08-26] MEDS: PHOS-NAK 1 PKT PACK PO SCH ×4 (06:44→19:12)
[2020-08-26] MEDS: Hydrocortisone 10 mg Tablet PO SCH ×2 (08:50→20:40)
[2020-08-26] MEDS: Saccharomyces boulardii 250 MG CAP PO SCH (08:51)
[2020-08-26] MEDS: Vancomycin 1 GM in Premix Bag 1 BAG IVPB SCH ×2 (08:51→20:40)
[2020-08-26] MEDS: Folic Acid 1 MG TAB PO SCH (08:51)
[2020-08-26] MEDS: Senokot S 8.6-50 MG TAB PO SCH ×2 (08:51→20:40)
[2020-08-26] MEDS: Calcium Carbonate 600 MG + Vit D TAB PO SCH ×2 (08:51→16:24)
[2020-08-26] MEDS: Sodium Chloride 0.9% 1,000 ML IV SCH ×2 (08:51→23:29)
[2020-08-26] MEDS: Enoxaparin Sodium 40 MG/0.4 ML SYRINGE SC SCH (08:51)
[2020-08-26] MEDS ORDERED: Ergocalciferol 1.25 MG(50,000 UNITS) CAP PO SCH (09:00)
[2020-08-26] MEDS: ALPRAZolam 0.5 MG TAB PO PRN (19:08)
[2020-08-26] MEDS: lamoTRIgine 100 MG TAB PO SCH (20:40)
[2020-08-26] MEDS: DULoxetine 30 MG CAP PO SCH (20:40)
[2020-08-26] MEDS: Atorvastatin Calcium 40 MG TAB PO SCH (20:40)
[2020-08-26] MEDS ORDERED: Acetaminophen/Codeine 30-300mg Tablet PO PRN (22:12)
[2020-08-27] MEDS: Diazepam 5 MG TAB PO PRN ×2 (01:47→11:12)
[2020-08-27] MEDS: Acetaminophen 325 MG TAB PO PRN (06:26)
[2020-08-27] MEDS: oxyCODONE/Acetaminophen 5 mg/325 mg Tablet PO PRN ×3 (06:27→21:40)
[2020-08-27] MEDS: Folic Acid 1 MG TAB PO SCH (08:37)
[2020-08-27] MEDS: Senokot S 8.6-50 MG TAB PO SCH ×2 (08:37→20:16)
[2020-08-27] MEDS: Metoprolol Tartrate 25 MG TAB PO SCH ×2 (08:38→21:45)
[2020-08-27] MEDS: Enoxaparin Sodium 40 MG/0.4 ML SYRINGE SC SCH (08:38)
[2020-08-27] MEDS: Vancomycin 1 GM in Premix Bag 1 BAG IVPB SCH (08:38)
[2020-08-27] MEDS: Saccharomyces boulardii 250 MG CAP PO SCH (08:38)
[2020-08-27] MEDS: Hydrocortisone 10 mg Tablet PO SCH ×2 (08:38→20:17)
[2020-08-27] MEDS: Calcium Carbonate 600 MG + Vit D TAB PO SCH ×2 (08:38→16:48)
[2020-08-27] MEDS: Ergocalciferol 1.25 MG(50,000 UNITS) CAP PO SCH (08:38)
[2020-08-27] MEDS: traMADol HCl 50 MG TAB PO PRN (08:39)
[2020-08-27] MEDS: Sodium Chloride 0.9% 1,000 ML IV SCH (13:59)
[2020-08-27] MEDS: hydrALAZINE 20 MG/ML VIAL SLOW IVP PRN (15:25)
[2020-08-27] MEDS: lamoTRIgine 100 MG TAB PO SCH (20:17)
[2020-08-27] MEDS: DULoxetine 30 MG CAP PO SCH (20:17)
[2020-08-27] MEDS: Atorvastatin Calcium 40 MG TAB PO SCH (20:17)
[2020-08-27] MEDS: Methocarbamol 500 MG TAB PO PRN (20:23)
[2020-08-28] MEDS: Sodium Chloride 0.9% 1,000 ML IV SCH ×2 (02:11→09:24)
[2020-08-28] MEDS: oxyCODONE/Acetaminophen 5 mg/325 mg Tablet PO PRN ×3 (03:55→16:49)
[2020-08-28] MEDS: hydrALAZINE 20 MG/ML VIAL SLOW IVP PRN (04:31)
[2020-08-28] MEDS: traMADol HCl 50 MG TAB PO PRN (08:18)
[2020-08-28] MEDS: Docusate 100 MG CAP PO PRN (08:18)
[2020-08-28] MEDS: Saccharomyces boulardii 250 MG CAP PO SCH (08:18)
[2020-08-28] MEDS: Folic Acid 1 MG TAB PO SCH (08:18)
[2020-08-28] MEDS: ALPRAZolam 0.5 MG TAB PO PRN ×2 (08:18→18:40)
[2020-08-28] MEDS: Senokot S 8.6-50 MG TAB PO SCH (08:18)
[2020-08-28] MEDS: Calcium Carbonate 600 MG + Vit D TAB PO SCH ×2 (08:18→16:47)
[2020-08-28] MEDS: Enoxaparin Sodium 40 MG/0.4 ML SYRINGE SC SCH (08:20)
[2020-08-28] MEDS: Metoprolol Tartrate 25 MG TAB PO SCH (08:20)
[2020-08-28] MEDS: Polyethylene Glycol 3350 17 GM Packet PO PRN (08:20)
[2020-08-28] MEDS: Hydrocortisone 10 mg Tablet PO SCH (08:33)
[2020-08-28 19:16] VITALS: BP 138/66; TEMP 97.2
== END 2020-08-28 19:20 | DRG 460 ==
LOC: ERS 16:07 → SURG A 16:43
PROVIDERS: ADMIT Neurological Surgery; ATTEND Internal Medicine
PROC: 0RGA071 Fusion of Thoracolumbar Vertebral Joint with Autologous Tissue Substitute, Posterior Approach, Posterior Column, Open Approach (ICD-10-PCS; principal; 2020-08-21)
PROC: 30233N1 Transfusion of Nonautologous Red Blood Cells into Peripheral Vein, Percutaneous Approach (ICD-10-PCS; 2020-08-26)
DX: M84.48XA Pathological fracture, other site, initial encounter for fracture (principal); G82.20 Paraplegia, unspecified; E27.40 Unspecified adrenocortical insufficiency; D62 Acute posthemorrhagic anemia; M48.062 Spinal stenosis, lumbar region with neurogenic claudication; E78.5 Hyperlipidemia, unspecified; I10 Essential (primary) hypertension; Z88.1 Allergy status to other antibiotic agents; Z88.2 Allergy status to sulfonamides; Z79.899 Other long term (current) drug therapy; Z87.891 Personal history of nicotine dependence; M81.8 Other osteoporosis without current pathological fracture; T38.0X5A Adverse effect of glucocorticoids and synthetic analogues, initial encounter; M06.9 Rheumatoid arthritis, unspecified; K21.9 Gastro-esophageal reflux disease without esophagitis; K44.9 Diaphragmatic hernia without obstruction or gangrene; Z95.2 Presence of prosthetic heart valve; E87.6 Hypokalemia; E83.42 Hypomagnesemia; E83.39 Other disorders of phosphorus metabolism; F41.9 Anxiety disorder, unspecified
CPT/HCPCS: 36415; 36430; 71045; 72141; 72146; 76000; 80048; 82040; 83735; 84100; 85025; 85610; 85730; 86850; 86900; 86901; 87071; 87635; 93005; 93010; 93970; 96374; C1713; C1768; J0360; J1100; J1650; J2270; J2405; J2704; J3010; J3370; J3475; J3490; L0639; P9016; P9045; S0028; U0003; U0005

== ENCOUNTER 2020-10-04 14:44 | Outpatient (CLI) | payer MEDICARE, BC | END 2020-10-04 14:45 | disposition home or self-care (01) | LOC: TBSIIMAG 14:44 | PROVIDERS: ATTEND Neurological Surgery | DX: S24.101A Unspecified injury at T1 level of thoracic spinal cord, initial encounter (principal); M48.062 Spinal stenosis, lumbar region with neurogenic claudication; Z98.1 Arthrodesis status; M85.80 Other specified disorders of bone density and structure, unspecified site; S32.009A Unspecified fracture of unspecified lumbar vertebra, initial encounter for closed fracture; S22.009A Unspecified fracture of unspecified thoracic vertebra, initial encounter for closed fracture | CPT/HCPCS: 72072 ==

== ENCOUNTER 2020-11-23 16:05 | Inpatient (IN) | payer MEDICARE, BC ==
[2020-11-23 16:55] LABS: #Eosinphils 0.1 thou/uL (0.0-0.7); #Lymphocytes 1.6 thou/uL (1.20-3.40); #Monocytes 0.8 thou/uL (0.11-0.59); #Neutrophils 5.3 thou/uL (1.40-6.50); %Basophils 0.5 % (0.0-1.0); %Eosinophils 0.9 % (0.0-10.0); %Lymphocytes 20.3 % (21.0-51.0); %Monocytes 10.1 % (0.0-10.0); %Neutrophils 68.2 % (42.0-75.0); Hemoglobin 11.4 g/dL (12.0-16.0); Mean Corpuscular Hemoglobin 37.2 pg (27.0-31.0); Mean Platelet Volume 6.7 fL (7.4-10.4); Platelet Count 280 thou/uL (130-400); RBC Distribution Width 14.3 % (11.5-14.5); Red Blood Cell (RBC) Count 3.07 mill/uL (4.20-5.40); White Blood Cell (WBC) Count 7.7 thou/uL (4.8-10.8)
[2020-11-23 17:15] LABS: ALT (SGPT) 18 U/L (8-55); AST (SGOT) 22 U/L (5-34); Albumin 3.4 g/dL (3.4-4.8); Alkaline Phosphatase 73 U/L (40-110); Anion Gap 14 mmol/L (10-20); BUN (Urea Nitrogen) 25 mg/dL (9.8-20.1); Bilirubin, Total 0.2 mg/dL (0.2-1.2); Calc. Creatinine Clearance 0 mL/min (70-130); Calcium 9.3 mg/dL (7.8-10.44); Carbon Dioxide 26 mmol/L (23-31); Chloride 101 mmol/L (98-107); Globulin 3.6 g/dL (2.4-3.5); Glucose 114 mg/dL (83-110); Potassium 3.7 mmol/L (3.5-5.1); Sodium 137 mmol/L (136-145)
[2020-11-23] MEDS ORDERED: Morphine 2 MG/ML VIAL SLOW IVP PRN (18:46)
[2020-11-23] MEDS ORDERED: traMADol HCl 50 MG TAB PO PRN (18:46)
[2020-11-23] MEDS ORDERED: tiZANidine HCl 4 MG TAB PO PRN (18:46)
[2020-11-23] MEDS ORDERED: HYDROcodone/Acetaminophen 7.5/325 mg Tablet PO PRN (18:46)
[2020-11-23] MEDS ORDERED: Acetaminophen/Codeine 30-300mg Tablet PO PRN (18:46)
[2020-11-23 20:28] VITALS: BMI 24.0
[2020-11-23 20:35] LABS: SARS-CoV-2 PCR by NAA Not Detected (NotDetected)
[2020-11-23] MEDS ORDERED: Docusate 100 MG CAP PO PRN (21:59)
[2020-11-23] MEDS ORDERED: Hydrocortisone 10 mg Tablet PO SCH (22:00)
[2020-11-23] MEDS ORDERED: Methocarbamol 500 MG TAB PO PRN (22:01)
[2020-11-23] MEDS ORDERED: oxyCODONE 5 MG TAB PO PRN (22:03)
[2020-11-23] MEDS: Sodium Chloride 0.9% 1,000 ML IV SCH (22:09)
[2020-11-24 05:31] LABS: INR-International Normal Ratio 0.9; PTT 25.3 sec (22.9-36.1); Prothrombin Time 12.2 sec (12.0-14.7)
[2020-11-24] MEDS ORDERED: Phenylephrine 10 MG/ML VIAL ONE (07:25)
[2020-11-24] MEDS ORDERED: Fentanyl 100 MCG/2 ML VIAL ONE ×2 (07:25→10:15)
[2020-11-24] MEDS ORDERED: SUGAMMADEX SODIUM 200 MG/2 ML VIAL ONE (07:25)
[2020-11-24] MEDS ORDERED: Famotidine/PF 20 mg/2ml Vial ONE (07:25)
[2020-11-24] MEDS ORDERED: Sodium Chloride 0.9% 10 ML ONE (07:26)
[2020-11-24] MEDS ORDERED: Bacitracin Zinc Ointment 30 gm TUBE ONE (07:26)
[2020-11-24] MEDS ORDERED: Midazolam HCl 2 mg/2 ml Vial ONE (07:57)
[2020-11-24] MEDS ORDERED: Ketamine 50 MG/ML (10ML VIAL) ONE (07:57)
[2020-11-24] MEDS ORDERED: Hydrocortisone Sod Succ/PF 100 mg/2 ml Vial ONE (08:01)
[2020-11-24] MEDS ORDERED: methylPREDNISolone Sod Succ/PF 125 MG/2 ML VIAL ONE (08:01)
[2020-11-24] MEDS ORDERED: ePHEDrine Sulfate 50 MG/10 ML VIAL ONE (08:42)
[2020-11-24] MEDS ORDERED: PROPOFOL 200 MG/20 ML VIAL ONE (08:42)
[2020-11-24] MEDS ORDERED: Ketorolac Tromethamine 30 MG/ML VIAL ONE (08:42)
[2020-11-24] MEDS ORDERED: Lidocaine 1% PF 5 ML VIAL ONE (08:42)
[2020-11-24] MEDS ORDERED: Glycopyrrolate 0.2 MG/ML 5 ML SYRINGE ONE (08:42)
[2020-11-24] MEDS ORDERED: Ondansetron PF 4 MG/2 ML Vial ONE (08:42)
[2020-11-24] MEDS ORDERED: Esmolol 100 MG/10 ML VIAL ONE (08:42)
[2020-11-24] MEDS ORDERED: Metoclopramide HCl 10 MG/2 ML VIAL ONE (08:42)
[2020-11-24] MEDS ORDERED: Rocuronium Bromide 10 MG/ML (10ML VIAL) ONE (08:42)
[2020-11-24] MEDS ORDERED: PHENYLEPHRINE-NS 100 MCG/ML 10 ML SYRINGE ONE (08:42)
[2020-11-24] MEDS ORDERED: Metoprolol Tartrate 5 MG/5 ML VIAL ONE (08:42)
[2020-11-24] MEDS ORDERED: Ondansetron HCl/PF 4 MG/2 ML Vial IVP PRN ×2 (09:29→09:58)
[2020-11-24] MEDS ORDERED: Promethazine HCl 25 MG/ML VIAL SLOW IVP PRN ×2 (09:29→09:58)
[2020-11-24] MEDS ORDERED: Promethazine HCl 25 MG/ML VIAL IM PRN ×2 (09:29→09:58)
[2020-11-24] MEDS ORDERED: Morphine Sulfate 2 MG/ML SYRINGE SLOW IVP PRN (09:58)
[2020-11-24] MEDS: Hydrocortisone 10 mg Tablet PO SCH ×2 (12:14→21:11)
[2020-11-24] MEDS: Amlodipine 5 MG TAB PO SCH (12:14)
[2020-11-24] MEDS: Cholecalciferol 1,000 UNITS (25 MCG) TAB PO SCH (12:14)
[2020-11-24] MEDS: Sodium Chloride 0.9% 1,000 ML IV SCH (12:15)
[2020-11-24] MEDS: Folic Acid 1 MG TAB PO SCH (12:15)
[2020-11-24] MEDS: CEFAZOLIN 2 GM in Premix Bag 1 BAG IVPB SCH ×2 (12:15→21:12)
[2020-11-24] MEDS: Lisinopril 20 MG TAB PO SCH (12:15)
[2020-11-24] MEDS: Acetaminophen 325 MG TAB PO PRN ×3 (14:17→23:25)
[2020-11-24] MEDS ORDERED: DULoxetine 30 MG CAP PO SCH (21:00)
[2020-11-24] MEDS ORDERED: Atorvastatin Calcium 40 MG TAB PO SCH (21:00)
[2020-11-24] MEDS ORDERED: lamoTRIgine 100 MG TAB PO SCH (21:00)
[2020-11-25] MEDS: Sodium Chloride 0.9% 1,000 ML IV SCH (00:11)
[2020-11-25] MEDS: CEFAZOLIN 2 GM in Premix Bag 1 BAG IVPB SCH (05:14)
[2020-11-25 07:55] VITALS: BP 150/84; TEMP 97.7
[2020-11-25] MEDS: Amlodipine 5 MG TAB PO SCH (07:57)
[2020-11-25] MEDS: Hydrocortisone 10 mg Tablet PO SCH (07:57)
[2020-11-25] MEDS: Cholecalciferol 1,000 UNITS (25 MCG) TAB PO SCH (07:57)
[2020-11-25] MEDS: Folic Acid 1 MG TAB PO SCH (07:58)
[2020-11-25] MEDS: Lisinopril 20 MG TAB PO SCH (07:58)
[2020-11-25] MEDS: Acetaminophen 325 MG TAB PO PRN (07:59)
== END 2020-11-25 11:15 | disposition home health service (06) | DRG 920 ==
LOC: ERS 16:05 → SURG A 17:01 → OBSVTOIN 18:46
PROVIDERS: ADMIT Surgery; ATTEND Surgery
PROC: 0HB6XZZ Excision of Back Skin, External Approach (ICD-10-PCS; principal; 2020-11-24)
DX: T81.31XA Disruption of external operation (surgical) wound, not elsewhere classified, initial encounter (principal); E27.40 Unspecified adrenocortical insufficiency; Z20.822 Contact with and (suspected) exposure to COVID-19; M06.9 Rheumatoid arthritis, unspecified; E78.5 Hyperlipidemia, unspecified; K21.9 Gastro-esophageal reflux disease without esophagitis; D50.9 Iron deficiency anemia, unspecified; M81.0 Age-related osteoporosis without current pathological fracture; Z88.1 Allergy status to other antibiotic agents; Z88.2 Allergy status to sulfonamides; Z88.8 Allergy status to other drugs, medicaments and biological substances; Z79.899 Other long term (current) drug therapy
CPT/HCPCS: 36415; 80053; 84134; 85025; 85610; 85652; 85730; 86140; 99284; G0378; J0690; J1720; J1885; J2250; J2370; J2405; J2704; J2765; J2930; J3010; J3370; J3490; S0028; U0003; U0005

== ENCOUNTER 2021-02-18 17:38 | Inpatient (IN) | payer MEDICARE, BC ==
[~2021-02-18 17:38] MED LIST: Heparin 1,000 UNITS/ML VIAL ONE
[2021-02-18] MEDS ORDERED: cefTRIAXone\\ROCEPHIN 2 GM VIAL ONE (18:02)
[2021-02-18] MEDS ORDERED: Vancomycin 1 GM/200 ML BAG ONE (18:02)
[2021-02-18] MEDS ORDERED: Norepinephrine 8 MG/0.9% NS 250 ML ONE (18:04)
[2021-02-18] MEDS ORDERED: Ampicillin 2 GM VIAL ONE (19:02)
[2021-02-18 19:29] LABS: Analyzer IN Cardio ER; Base Excess -16.2 mEq/L (-2.0 to +3.0); Calcium, Ionized (venous) 1.09 mmol/L (1.16-1.32); Chloride (VBG) 110 mmol/L (98-106); Hemoglobin (Hb) 10.6 g/dL (11.7-16.1); Potassium (VBG) 3.58 mmol/L (3.70-5.30); Sodium 137.6 mmol/L (133-146)
[2021-02-18 19:32] LABS: Actual Bicarbonate (HCO3v) 11 mEq/L (22-28); pH (venous) 7.19 (7.32-7.43)
[2021-02-18 19:34] LABS: Hemoglobin 11.5 g/dL (12.0-16.0); Mean Corpuscular HGB CONC 31.6 g/dL (32.0-36.0); Mean Corpuscular Hemoglobin 36.1 pg (27.0-31.0); Mean Platelet Volume 7.3 fL (7.4-10.4); Platelet Count 341 thou/uL (130-400); RBC Distribution Width 14.8 % (11.5-14.5); Red Blood Cell (RBC) Count 3.18 mill/uL (4.20-5.40); White Blood Cell (WBC) Count 17.9 thou/uL (4.8-10.8)
[2021-02-18 19:58] LABS: ALT (SGPT) 36 U/L (8-55); AST (SGOT) 82 U/L (5-34); Albumin 2.5 g/dL (3.4-4.8); Alkaline Phosphatase 108 U/L (40-110); Anion Gap 25 mmol/L (10-20); BUN (Urea Nitrogen) 53 mg/dL (9.8-20.1); Bilirubin, Total 0.2 mg/dL (0.2-1.2); Calc. Creatinine Clearance 0 mL/min (70-130); Calcium 9.7 mg/dL (7.8-10.44); Carbon Dioxide 12 mmol/L (23-31); Chloride 104 mmol/L (98-107); Globulin 3.9 g/dL (2.4-3.5); Glucose 74 mg/dL (83-110); Potassium 4.2 mmol/L (3.5-5.1); Protein, Total 6.4 g/dL (5.8-8.1); Sodium 137 mmol/L (136-145)
[2021-02-18 20:08] LABS: Band 61 % (5-11); Hypochromia SLIGHT = 6-15 cells (100X) (0-5/hpf); Lymphocytes 11 % (21-51); MDiff Complete? YES; Macrocytosis MODERATE=16-30 cells (100X) (0-5/hpf); Metamyelocyte 2 % (0-0); Monocytes 3 % (0-10); Neutrophil 22 % (42-75); Platelet Morphology Comment Appears Adequate; Reactive Lymphocytes 1 % (0-10); Reflex for Review?? YES
[2021-02-18] MEDS ORDERED: Bisacodyl 5 MG TAB PO PRN (20:11)
[2021-02-18] MEDS ORDERED: Dextrose 5% in Water 1,000 ML IV PRN (20:11)
[2021-02-18] MEDS ORDERED: Dextrose 50% Abboject 50 ML SYRINGE SLOW IVP PRN (20:11)
[2021-02-18] MEDS ORDERED: hydrALAZINE 20 MG/ML VIAL SLOW IVP PRN (20:14)
[2021-02-18 20:29] LABS: CKMB 3.9 ng/mL (0-6.6)
[2021-02-18] MEDS ORDERED: Ondansetron PF 4 MG/2 ML Vial ONE (20:52)
[2021-02-18] MEDS: Ondansetron PF 4 MG/2 ML Vial IVP PRN (20:54)
[2021-02-18] MEDS: Sodium Bicarbonate 150 MEQ in Dextrose 5% in Water 1,000 ML IV SCH (20:55)
[2021-02-18] MEDS: Atorvastatin Calcium 40 MG TAB PO SCH (21:25)
[2021-02-18] MEDS ORDERED: Famotidine 20 MG TAB ONE (21:32)
[2021-02-18] MEDS: Famotidine 20 MG TAB PO SCH (21:35)
[2021-02-18] MEDS: Acetaminophen 325 MG TAB PO PRN (22:35)
[2021-02-18] MEDS ORDERED: Acetaminophen 325 MG TAB ONE (22:36)
[2021-02-18] MEDS ORDERED: Hydrocortisone Sod Succ/PF 100 mg/2 ml Vial ONE (23:03)
[2021-02-18 23:12] LABS: Lactic Acid 4.1 mmol/L (0.5-2.2)
[2021-02-18] MEDS ORDERED: Succinylcholine 200 MG/10 ml SYRINGE FS ONE (23:53)
[2021-02-19] MEDS ORDERED: HYDROcodone/Acetaminophen 5/325 mg Tablet ONE ×3 (02:02→12:47)
[2021-02-19] MEDS: HYDROcodone/Acetaminophen 5/325 mg Tablet PO PRN ×3 (02:09→12:49)
[2021-02-19] MEDS: Hydrocortisone Sod Succ/PF 100 mg/2 ml Vial IVP SCH ×5 (02:10→21:58)
[2021-02-19] MEDS ORDERED: Hydrocortisone Sod Succ/PF 100 mg/2 ml Vial ONE ×2 (03:39→08:50)
[2021-02-19] MEDS ORDERED: Sodium Chloride 0.9% 500 ML IVPB SCH (03:45)
[2021-02-19 05:09] LABS: Hemoglobin 10.7 g/dL (12.0-16.0); Mean Corpuscular HGB CONC 31.3 g/dL (32.0-36.0); Mean Platelet Volume 7.2 fL (7.4-10.4); Platelet Count 268 thou/uL (130-400); RBC Distribution Width 15.1 % (11.5-14.5); Red Blood Cell (RBC) Count 3.05 mill/uL (4.20-5.40); White Blood Cell (WBC) Count 15.5 thou/uL (4.8-10.8)
[2021-02-19 05:30] LABS: Creatinine, Urine 89.89 mg/dL (47-110); Potassium, Urine 80.1 mmol/L
[2021-02-19 05:48] LABS: Band 59 % (5-11); Lymphocytes 6 % (21-51); MDiff Complete? YES; Macrocytosis SLIGHT = 6-15 cells (100X) (0-5/hpf); Metamyelocyte 3 % (0-0); Monocytes 7 % (0-10); Neutrophil 25 % (42-75)
[2021-02-19 06:26] LABS: Troponin I 5.369 ng/mL (< 0.028)
[2021-02-19 06:27] LABS: Albumin 2.3 g/dL (3.4-4.8); Anion Gap 16 mmol/L (10-20); BUN (Urea Nitrogen) 50 mg/dL (9.8-20.1); BUN/Creatinine Ratio 25.91; Calc. Creatinine Clearance 22 mL/min (70-130); Calcium 8.1 mg/dL (7.8-10.44); Carbon Dioxide 20 mmol/L (23-31); Chloride 104 mmol/L (98-107); Glucose 91 mg/dL (83-110); Phosphorus 5.4 mg/dL (2.3-4.7); Potassium 4.1 mmol/L (3.5-5.1); Sodium 136 mmol/L (136-145)
[2021-02-19] MEDS ORDERED: Enoxaparin Sodium 60 MG/0.6 ML SYRINGE SC SCH (07:15)
[2021-02-19] MEDS: Sodium Bicarbonate 150 MEQ in Dextrose 5% in Water 1,000 ML IV SCH ×3 (07:37→22:00)
[2021-02-19] MEDS ORDERED: Ondansetron PF 4 MG/2 ML Vial ONE (07:47)
[2021-02-19] MEDS: Ondansetron PF 4 MG/2 ML Vial IVP PRN ×3 (07:52→22:48)
[2021-02-19] MEDS ORDERED: Morphine 2 MG/ML VIAL ONE (08:23)
[2021-02-19] MEDS: Morphine 2 MG/ML VIAL SLOW IVP PRN ×2 (08:28→15:44)
[2021-02-19] MEDS ORDERED: Aspirin Chewable 81 MG TAB ONE (08:51)
[2021-02-19] MEDS ORDERED: Famotidine 20 MG TAB ONE ×2 (08:51→08:52)
[2021-02-19] MEDS ORDERED: Cholecalciferol 1,000 UNITS (25 MCG) TAB ONE (08:53)
[2021-02-19] MEDS ORDERED: Enoxaparin Sodium 30 MG/0.3 ML SYRINGE SC SCH (09:00)
[2021-02-19] MEDS: Aspirin 81 mg Enteric Coated Tablet PO SCH (09:02)
[2021-02-19] MEDS: Cholecalciferol 1,000 UNITS (25 MCG) TAB PO SCH (09:05)
[2021-02-19] MEDS: Folic Acid 1 MG TAB PO SCH (09:05)
[2021-02-19] MEDS: Zinc Sulfate 220 MG CAP PO SCH (10:03)
[2021-02-19 13:50] LABS: Bilirubin Negative (Negative); Blood, Urine 2+ (Negative); Clarity Turbid (Clear); Glucose, Urine (Dipstick) Normal (Negative); Ketone, Urine Negative (Negative); Leukocyte Negative Leu/uL (Negative); Nitrite Negative (Negative); Protein, Urine (Dipstick) 70 mg/dL (Neg-Trace); RBC/HPF 0-3 HPF (0-3); Specific Gravity, Urine 1.027 (1.002-1.036); Squamous Epithelial 0-3 HPF (0-3); Urobilinogen Normal mg/dL (Less than 2); WBC/HPF 0-3 HPF (0-3); pH, Urine 5.5 (5.0-9.0)
[2021-02-19 14:00] LABS: Bacteria/HPF Rare-Few HPF (None Seen)
[2021-02-19 14:02] LABS: Anion Gap 17 mmol/L (10-20); BUN (Urea Nitrogen) 48 mg/dL (9.8-20.1); Carbon Dioxide 21 mmol/L (23-31); Chloride 98 mmol/L (98-107); Potassium 3.9 mmol/L (3.5-5.1); Sodium 132 mmol/L (136-145)
[2021-02-19 14:03] LABS: Calc. Creatinine Clearance 25 mL/min (70-130); Calcium 7.7 mg/dL (7.8-10.44); Glucose 108 mg/dL (83-110)
[2021-02-19 14:04] LABS: Lactic Acid 4.1 mmol/L (0.5-2.2)
[2021-02-19 14:14] LABS: Critical Call Chem Troponin I RESULT DECREASING; Troponin I 3.113 ng/mL (< 0.028)
[2021-02-19] MEDS: Cefepime 2 GM in Sodium Chloride 0.9% 100 ML IVPB SCH (15:45)
[2021-02-19] MEDS: Sodium Chloride 0.9% 1,000 ML IV SCH (15:46)
[2021-02-19] MEDS ORDERED: Sodium Chloride 0.9% 1,000 ML IV SCH (16:00)
[2021-02-19] MEDS ORDERED: Vancomycin 1 GM in Premix Bag 1 BAG IVPB SCH (18:00)
[2021-02-19 19:59] LABS: Vancomycin, Trough 10.3 ug/mL
[2021-02-19] MEDS: Atorvastatin Calcium 40 MG TAB PO SCH (21:58)
[2021-02-19] MEDS: Famotidine 20 MG TAB PO SCH (21:58)
[2021-02-19] MEDS ORDERED: Vancomycin HCl 500 MG in Sodium Chloride 0.9% 100 ML IVPB SCH (22:00)
[2021-02-19 22:52] LABS: Lactic Acid 3.7 mmol/L (0.5-2.2)
[2021-02-20] MEDS: Sodium Chloride 0.9% 1,000 ML IV SCH ×3 (03:08→15:11)
[2021-02-20] MEDS: Morphine 2 MG/ML VIAL SLOW IVP PRN (03:08)
[2021-02-20] MEDS: Cefepime 2 GM in Sodium Chloride 0.9% 100 ML IVPB SCH ×2 (03:08→15:11)
[2021-02-20] MEDS: Hydrocortisone Sod Succ/PF 100 mg/2 ml Vial IVP SCH ×4 (03:10→22:48)
[2021-02-20 04:51] LABS: ALT (SGPT) 60 U/L (8-55); AST (SGOT) 120 U/L (5-34); Albumin 2.1 g/dL (3.4-4.8); Alkaline Phosphatase 92 U/L (40-110); Anion Gap 16 mmol/L (10-20); BUN (Urea Nitrogen) 40 mg/dL (9.8-20.1); Bilirubin, Total 0.3 mg/dL (0.2-1.2); Calc. Creatinine Clearance 36 mL/min (70-130); Calcium 7.2 mg/dL (7.8-10.44); Carbon Dioxide 26 mmol/L (23-31); Chloride 94 mmol/L (98-107); Globulin 3.1 g/dL (2.4-3.5); Glucose 109 mg/dL (83-110); Potassium 3.4 mmol/L (3.5-5.1); Protein, Total 5.2 g/dL (5.8-8.1); Sodium 133 mmol/L (136-145)
[2021-02-20 04:52] LABS: Hemoglobin 10.8 g/dL (12.0-16.0); Mean Corpuscular HGB CONC 31.4 g/dL (32.0-36.0); Platelet Count 204 thou/uL (130-400); RBC Distribution Width 15.2 % (11.5-14.5); Red Blood Cell (RBC) Count 3.09 mill/uL (4.20-5.40); White Blood Cell (WBC) Count 12.8 thou/uL (4.8-10.8)
[2021-02-20 06:49] LABS: Band 36 % (5-11); Lymphocytes 11 % (21-51); MDiff Complete? YES; Metamyelocyte 1 % (0-0); Monocytes 8 % (0-10); Neutrophil 44 % (42-75)
[2021-02-20] MEDS ORDERED: Albumin 25% 25 GM/100 ML BOT IVPB SCH (07:14)
[2021-02-20] MEDS ORDERED: Potassium Chloride 20 MEQ TAB PO SCH ×2 (09:00→20:45)
[2021-02-20] MEDS: Aspirin 81 mg Enteric Coated Tablet PO SCH (10:23)
[2021-02-20] MEDS: Folic Acid 1 MG TAB PO SCH (10:32)
[2021-02-20] MEDS: Cholecalciferol 1,000 UNITS (25 MCG) TAB PO SCH (10:32)
[2021-02-20] MEDS: Sodium Bicarbonate 150 MEQ in Dextrose 5% in Water 1,000 ML IV SCH (10:35)
[2021-02-20] MEDS: Zinc Sulfate 220 MG CAP PO SCH (10:35)
[2021-02-20] MEDS: hydrALAZINE 20 MG/ML VIAL SLOW IVP PRN ×2 (11:01→17:06)
[2021-02-20 11:18] LABS: Lactic Acid 2.9 mmol/L (0.5-2.2)
[2021-02-20] MEDS ORDERED: Potassium Chloride 20 MEQ in Premix Bag 1 BAG IVPB SCH ×2 (12:15→23:30)
[2021-02-20] MEDS ORDERED: Iopamidol 370 76% 100 ML VIAL ONE (13:23)
[2021-02-20] MEDS ORDERED: Pantoprazole 40 MG VIAL IVP SCH (16:30)
[2021-02-20 16:58] LABS: SARS-CoV-2 PCR by NAA Not Detected (NotDetected)
[2021-02-20 19:23] LABS: Hemoglobin 8.8 g/dL (12.0-16.0); Mean Corpuscular HGB CONC 32.8 g/dL (32.0-36.0); Mean Platelet Volume 7.1 fL (7.4-10.4); Platelet Count 191 thou/uL (130-400); RBC Distribution Width 15.1 % (11.5-14.5); Red Blood Cell (RBC) Count 2.44 mill/uL (4.20-5.40); White Blood Cell (WBC) Count 14.1 thou/uL (4.8-10.8)
[2021-02-20 19:35] LABS: Lactic Acid 1.9 mmol/L (0.5-2.2)
[2021-02-20 19:46] LABS: Anisocytosis SLIGHT = 6-15 cells (100X) (0-5/hpf); Band 22 % (5-11); Dohle Bodies SLIGHT; Lymphocytes 5 % (21-51); MDiff Complete? YES; Macrocytosis SLIGHT = 6-15 cells (100X) (0-5/hpf); Metamyelocyte 1 % (0-0); Monocytes 6 % (0-10); Neutrophil 66 % (42-75); Platelet Morphology Comment Appears Adequate; Polychromasia SLIGHT = 2-3 cells (100X) (0-2/hpf); Vacuoles SLIGHT
[2021-02-20 19:48] LABS: Troponin I 0.825 ng/mL (< 0.028)
[2021-02-20 19:56] LABS: ALT (SGPT) 50 U/L (8-55); AST (SGOT) 94 U/L (5-34); Albumin 3.1 g/dL (3.4-4.8); Alkaline Phosphatase 102 U/L (40-110); Anion Gap 14 mmol/L (10-20); BUN (Urea Nitrogen) 29 mg/dL (9.8-20.1); Bilirubin, Total 0.4 mg/dL (0.2-1.2); Calc. Creatinine Clearance 47 mL/min (70-130); Calcium 7.6 mg/dL (7.8-10.44); Carbon Dioxide 31 mmol/L (23-31); Chloride 95 mmol/L (98-107); Globulin 2.7 g/dL (2.4-3.5); Glucose 115 mg/dL (83-110); Potassium 3.2 mmol/L (3.5-5.1); Protein, Total 5.8 g/dL (5.8-8.1); Sodium 137 mmol/L (136-145)
[2021-02-20 21:52] LABS: Vancomycin, Random 9.1 ug/mL (See Comment)
[2021-02-20] MEDS: Vancomycin 1 GM in Premix Bag 1 BAG IVPB SCH (22:47)
[2021-02-20] MEDS: Atorvastatin Calcium 40 MG TAB PO SCH (23:13)
[2021-02-21] MEDS: hydrALAZINE 20 MG/ML VIAL SLOW IVP PRN ×2 (00:16→09:08)
[2021-02-21 01:49] LABS: Critical Call Chem Troponin I RESULT DECREASING; Troponin I 0.755 ng/mL (< 0.028)
[2021-02-21] MEDS: Hydrocortisone Sod Succ/PF 100 mg/2 ml Vial IVP SCH ×4 (03:31→20:50)
[2021-02-21] MEDS: Cefepime 2 GM in Sodium Chloride 0.9% 100 ML IVPB SCH ×2 (03:31→13:59)
[2021-02-21 05:06] LABS: ALT (SGPT) 47 U/L (8-55); AST (SGOT) 86 U/L (5-34); Albumin 2.7 g/dL (3.4-4.8); Alkaline Phosphatase 103 U/L (40-110); Anion Gap 9 mmol/L (10-20); BUN (Urea Nitrogen) 25 mg/dL (9.8-20.1); Bilirubin, Total 0.4 mg/dL (0.2-1.2); Calc. Creatinine Clearance 51 mL/min (70-130); Calcium 7.4 mg/dL (7.8-10.44); Carbon Dioxide 32 mmol/L (23-31); Chloride 97 mmol/L (98-107); Globulin 2.8 g/dL (2.4-3.5); Glucose 103 mg/dL (83-110); Potassium 3.2 mmol/L (3.5-5.1); Protein, Total 5.5 g/dL (5.8-8.1); Sodium 135 mmol/L (136-145)
[2021-02-21 05:11] LABS: Band 20 % (5-11); Hemoglobin 8.9 g/dL (12.0-16.0); Hypochromia SLIGHT = 6-15 cells (100X) (0-5/hpf); Lymphocytes 5 % (21-51); MDiff Complete? YES; Macrocytosis SLIGHT = 6-15 cells (100X) (0-5/hpf); Mean Corpuscular HGB CONC 32.3 g/dL (32.0-36.0); Mean Corpuscular Hemoglobin 35.6 pg (27.0-31.0); Mean Platelet Volume 7.2 fL (7.4-10.4); Monocytes 3 % (0-10); Neutrophil 72 % (42-75); Platelet Count 190 thou/uL (130-400); Platelet Morphology Comment Appears Adequate; Red Blood Cell (RBC) Count 2.49 mill/uL (4.20-5.40); White Blood Cell (WBC) Count 11.8 thou/uL (4.8-10.8)
[2021-02-21] MEDS: Sodium Bicarbonate 150 MEQ in Dextrose 5% in Water 1,000 ML IV SCH (07:41)
[2021-02-21] MEDS: Pantoprazole 40 MG VIAL IVP SCH (08:50)
[2021-02-21] MEDS: Cholecalciferol 1,000 UNITS (25 MCG) TAB PO SCH (08:52)
[2021-02-21] MEDS: Aspirin 81 mg Enteric Coated Tablet PO SCH (08:52)
[2021-02-21] MEDS: Sodium Chloride 0.9% 1,000 ML IV SCH (08:57)
[2021-02-21] MEDS ORDERED: Amino Acids 4.25 %/Dextrose 5% 2,000 ML BAG IV SCH (09:00)
[2021-02-21] MEDS: Zinc Sulfate 220 MG CAP PO SCH (09:00)
[2021-02-21] MEDS: Folic Acid 1 MG TAB PO SCH (09:00)
[2021-02-21 09:11] LABS: Lactic Acid 1.2 mmol/L (0.5-2.2)
[2021-02-21 09:15] LABS: Albumin 2.8 g/dL (3.4-4.8); Anion Gap 14 mmol/L (10-20); BUN (Urea Nitrogen) 24 mg/dL (9.8-20.1); BUN/Creatinine Ratio 30.38; Calc. Creatinine Clearance 62 mL/min (70-130); Calcium 7.4 mg/dL (7.8-10.44); Carbon Dioxide 30 mmol/L (23-31); Chloride 97 mmol/L (98-107); Glucose 110 mg/dL (83-110); Magnesium 1.7 mg/dL (1.6-2.6); Phosphorus 2.1 mg/dL (2.3-4.7); Sodium 138 mmol/L (136-145)
[2021-02-21 09:41] LABS: Thyroid Stimulating Hormone 0.1274 uIU/mL (0.35-4.94)
[2021-02-21 09:43] LABS: CKMB 2.2 ng/mL (0-6.6)
[2021-02-21 09:44] LABS: Vitamin B12 Greater than 2000 pg/mL (211-911)
[2021-02-21 10:41] VITALS: BMI 26.2
[2021-02-21] MEDS: Potassium Chloride 20 MEQ in Premix Bag 1 BAG IVPB SCH ×2 (10:41→13:11)
[2021-02-21] MEDS: cloNIDine 0.1mg/24 Hour PATCH TD SCH (10:41)
[2021-02-21] MEDS: Acetaminophen 325 MG TAB PO PRN (13:59)
[2021-02-21] MEDS ORDERED: Magnesium Sulfate 4 GM in Sodium Chloride 0.9% 250 ML 250 ML IVPB SCH (15:45)
[2021-02-21] MEDS ORDERED: Potassium Phosphate 30 MMOL, Magnesium Sulfate 4 GM in Sodium Chloride 0.9% 250 ML 250 ML IVPB SCH (16:00)
[2021-02-21 16:37] LABS: Albumin 2.7 g/dL (3.4-4.8); Anion Gap 15 mmol/L (10-20); BUN (Urea Nitrogen) 23 mg/dL (9.8-20.1); BUN/Creatinine Ratio 27.71; Calc. Creatinine Clearance 59 mL/min (70-130); Calcium 7.8 mg/dL (7.8-10.44); Carbon Dioxide 29 mmol/L (23-31); Chloride 98 mmol/L (98-107); Glucose 98 mg/dL (83-110); Potassium 3.8 mmol/L (3.5-5.1); Sodium 138 mmol/L (136-145)
[2021-02-21] MEDS ORDERED: Amino Acids 4.25 %/Dextrose 5% 2,000 ML IV SCH (18:00)
[2021-02-21] MEDS: Amino Acids 4.25 %/Dextrose 5% 1,000 ML IV SCH (18:51)
[2021-02-21] MEDS: Atorvastatin Calcium 40 MG TAB PO SCH (20:50)
[2021-02-21 21:35] LABS: Albumin 2.6 g/dL (3.4-4.8); Anion Gap 13 mmol/L (10-20); BUN (Urea Nitrogen) 24 mg/dL (9.8-20.1); BUN/Creatinine Ratio 28.92; Calc. Creatinine Clearance 59 mL/min (70-130); Calcium 7.7 mg/dL (7.8-10.44); Carbon Dioxide 29 mmol/L (23-31); Chloride 99 mmol/L (98-107); Glucose 126 mg/dL (83-110); Phosphorus 3.6 mg/dL (2.3-4.7); Potassium 3.8 mmol/L (3.5-5.1); Sodium 137 mmol/L (136-145)
[2021-02-21] MEDS: Morphine 2 MG/ML VIAL SLOW IVP PRN (21:52)
[2021-02-21] MEDS: Vancomycin 1 GM in Premix Bag 1 BAG IVPB SCH (21:53)
[2021-02-21] MEDS ORDERED: levETIRAcetam in NS 500 MG in Premix Bag 1 BAG IVPB SCH (23:30)
[2021-02-22] MEDS: hydrALAZINE 20 MG/ML VIAL SLOW IVP PRN (03:19)
[2021-02-22] MEDS: Hydrocortisone Sod Succ/PF 100 mg/2 ml Vial IVP SCH ×4 (03:19→21:02)
[2021-02-22] MEDS: Cefepime 2 GM in Sodium Chloride 0.9% 100 ML IVPB SCH ×2 (03:21→16:41)
[2021-02-22 05:27] LABS: ALT (SGPT) 45 U/L (8-55); AST (SGOT) 77 U/L (5-34); Albumin 2.7 g/dL (3.4-4.8); Alkaline Phosphatase 101 U/L (40-110); Anion Gap 12 mmol/L (10-20); BUN (Urea Nitrogen) 28 mg/dL (9.8-20.1); Bilirubin, Total 0.4 mg/dL (0.2-1.2); Calc. Creatinine Clearance 62 mL/min (70-130); Calcium 7.8 mg/dL (7.8-10.44); Carbon Dioxide 26 mmol/L (23-31); Chloride 99 mmol/L (98-107); Glucose 142 mg/dL (83-110); Potassium 3.3 mmol/L (3.5-5.1); Protein, Total 5.7 g/dL (5.8-8.1); Sodium 134 mmol/L (136-145)
[2021-02-22 05:40] LABS: Band 52 % (5-11); Lymphocytes 4 % (21-51); MDiff Complete? YES; Mean Corpuscular HGB CONC 31.2 g/dL (32.0-36.0); Mean Corpuscular Hemoglobin 34.3 pg (27.0-31.0); Mean Platelet Volume 7.7 fL (7.4-10.4); Metamyelocyte 1 % (0-0); Monocytes 8 % (0-10); Myelocyte 1 % (0-0); Neutrophil 34 % (42-75); Platelet Count 197 thou/uL (130-400); Platelet Morphology Comment Appears Adequate; RBC Distribution Width 14.8 % (11.5-14.5); Red Blood Cell (RBC) Count 2.61 mill/uL (4.20-5.40); White Blood Cell (WBC) Count 8.6 thou/uL (4.8-10.8)
[2021-02-22] MEDS: Amino Acids 4.25 %/Dextrose 5% 1,000 ML IV SCH ×2 (07:51→22:08)
[2021-02-22 08:13] LABS: Magnesium 2.3 mg/dL (1.6-2.6); Phosphorus 2.2 mg/dL (2.3-4.7)
[2021-02-22] MEDS: Folic Acid 1 MG TAB PO SCH (09:03)
[2021-02-22] MEDS: Cholecalciferol 1,000 UNITS (25 MCG) TAB PO SCH (09:03)
[2021-02-22] MEDS: Aspirin 81 mg Enteric Coated Tablet PO SCH (09:03)
[2021-02-22] MEDS: levETIRAcetam in NS 500 MG in Premix Bag 1 BAG IVPB SCH ×2 (09:05→21:04)
[2021-02-22] MEDS: Pantoprazole 40 MG VIAL IVP SCH (09:05)
[2021-02-22] MEDS: Zinc Sulfate 220 MG CAP PO SCH (09:05)
[2021-02-22] MEDS ORDERED: Potassium Phosphate 30 MMOL in Sodium Chloride 0.9% 250 ML 250 ML IVPB SCH ×2 (11:45→19:30)
[2021-02-22] MEDS: Lorazepam 2 MG/ML VIAL SLOW IVP PRN ×2 (12:35→21:03)
[2021-02-22] MEDS ORDERED: Furosemide 20 MG/2 ML VIAL SLOW IVP SCH (15:15)
[2021-02-22 16:56] LABS: Albumin 2.5 g/dL (3.4-4.8); Anion Gap 13 mmol/L (10-20); BUN (Urea Nitrogen) 29 mg/dL (9.8-20.1); BUN/Creatinine Ratio 38.67; Calc. Creatinine Clearance 65 mL/min (70-130); Carbon Dioxide 24 mmol/L (23-31); Chloride 99 mmol/L (98-107); Glucose 130 mg/dL (83-110); Phosphorus 2.9 mg/dL (2.3-4.7); Potassium 3.2 mmol/L (3.5-5.1); Sodium 133 mmol/L (136-145)
[2021-02-22] MEDS: Atorvastatin Calcium 40 MG TAB PO SCH (21:05)
[2021-02-22] MEDS: Vancomycin 1 GM in Premix Bag 1 BAG IVPB SCH (22:30)
[2021-02-23] MEDS: Hydrocortisone Sod Succ/PF 100 mg/2 ml Vial IVP SCH ×4 (03:07→20:38)
[2021-02-23] MEDS: Cefepime 2 GM in Sodium Chloride 0.9% 100 ML IVPB SCH ×2 (03:07→15:55)
[2021-02-23] MEDS ORDERED: Furosemide 20 MG/2 ML VIAL SLOW IVP SCH (08:30)
[2021-02-23] MEDS: levETIRAcetam in NS 500 MG in Premix Bag 1 BAG IVPB SCH ×2 (08:33→20:40)
[2021-02-23] MEDS: Pantoprazole 40 MG VIAL IVP SCH (08:34)
[2021-02-23] MEDS: Folic Acid 1 MG TAB PO SCH (08:35)
[2021-02-23] MEDS: Cholecalciferol 1,000 UNITS (25 MCG) TAB PO SCH (08:35)
[2021-02-23] MEDS: Aspirin 81 mg Enteric Coated Tablet PO SCH (08:35)
[2021-02-23] MEDS: Zinc Sulfate 220 MG CAP PO SCH (08:36)
[2021-02-23 09:50] LABS: Anion Gap 14 mmol/L (10-20); BUN (Urea Nitrogen) 33 mg/dL (9.8-20.1); Calc. Creatinine Clearance 67 mL/min (70-130); Calcium 8.3 mg/dL (7.8-10.44); Carbon Dioxide 25 mmol/L (23-31); Chloride 97 mmol/L (98-107); Glucose 125 mg/dL (83-110); Magnesium 1.5 mg/dL (1.6-2.6); Sodium 133 mmol/L (136-145)
[2021-02-23] MEDS ORDERED: Magnesium Sulfate 4 GM in Sodium Chloride 0.9% 250 ML 250 ML IVPB SCH (10:00)
[2021-02-23] MEDS: Morphine 2 MG/ML VIAL SLOW IVP PRN ×2 (10:14→20:37)
[2021-02-23 10:15] LABS: Potassium 2.9 mmol/L (3.5-5.1)
[2021-02-23 10:43] LABS: Hemoglobin 9.8 g/dL (12.0-16.0); Mean Corpuscular Hemoglobin 35.1 pg (27.0-31.0); Mean Platelet Volume 7.9 fL (7.4-10.4); Platelet Count 189 thou/uL (130-400); RBC Distribution Width 15.4 % (11.5-14.5); Red Blood Cell (RBC) Count 2.78 mill/uL (4.20-5.40); White Blood Cell (WBC) Count 16.2 thou/uL (4.8-10.8)
[2021-02-23] MEDS: Amino Acids 4.25 %/Dextrose 5% 1,000 ML IV SCH (11:11)
[2021-02-23 12:37] LABS: Anisocytosis SLIGHT = 6-15 cells (100X) (0-5/hpf); Band 11 % (5-11); Lymphocytes 2 % (21-51); MDiff Complete? YES; Monocytes 19 % (0-10); Neutrophil 68 % (42-75); Platelet Morphology Comment Appears Adequate; Vacuoles SLIGHT
[2021-02-23] MEDS: Potassium Chloride 40 MEQ in Sodium Chloride 0.9% 250 ML 250 ML IVPB SCH ×2 (13:48→20:29)
[2021-02-23] MEDS: Vancomycin 1 GM in Premix Bag 1 BAG IVPB SCH (23:16)
[2021-02-23] MEDS: Atorvastatin Calcium 40 MG TAB PO SCH (23:17)
[2021-02-24] MEDS: Lorazepam 2 MG/ML VIAL SLOW IVP PRN ×3 (00:05→16:08)
[2021-02-24] MEDS: Amino Acids 4.25 %/Dextrose 5% 1,000 ML IV SCH ×2 (00:40→15:29)
[2021-02-24] MEDS: Cefepime 2 GM in Sodium Chloride 0.9% 100 ML IVPB SCH ×2 (03:17→15:28)
[2021-02-24] MEDS: Hydrocortisone Sod Succ/PF 100 mg/2 ml Vial IVP SCH ×4 (03:18→21:33)
[2021-02-24] MEDS ORDERED: Melatonin 3 MG TAB PO PRN (04:14)
[2021-02-24 05:13] LABS: Anion Gap 12 mmol/L (10-20); BUN (Urea Nitrogen) 33 mg/dL (9.8-20.1); Calc. Creatinine Clearance 72 mL/min (70-130); Calcium 8.3 mg/dL (7.8-10.44); Carbon Dioxide 24 mmol/L (23-31); Chloride 101 mmol/L (98-107); Glucose 127 mg/dL (83-110); Potassium 3.5 mmol/L (3.5-5.1); Sodium 133 mmol/L (136-145)
[2021-02-24 05:31] LABS: Hemoglobin 9.4 g/dL (12.0-16.0); MDiff Complete? YES; Mean Corpuscular HGB CONC 32.1 g/dL (32.0-36.0); Mean Corpuscular Hemoglobin 35.1 pg (27.0-31.0); Mean Platelet Volume 8.4 fL (7.4-10.4); Platelet Count 186 thou/uL (130-400); Red Blood Cell (RBC) Count 2.68 mill/uL (4.20-5.40); White Blood Cell (WBC) Count 19.3 thou/uL (4.8-10.8)
[2021-02-24 05:32] LABS: Band 35 % (5-11); Lymphocytes 4 % (21-51); Macrocytosis MODERATE=16-30 cells (100X) (0-5/hpf); Metamyelocyte 2 % (0-0); Monocytes 5 % (0-10); Myelocyte 1 % (0-0); Neutrophil 53 % (42-75); Platelet Morphology Comment Appears Adequate
[2021-02-24 05:59] LABS: Bacteria/HPF None Seen HPF (None Seen); Bilirubin Negative (Negative); Blood, Urine 2+ (Negative); Clarity Clear (Clear); Glucose, Urine (Dipstick) Normal (Negative); Ketone, Urine Negative (Negative); Leukocyte Negative Leu/uL (Negative); Nitrite Negative (Negative); Protein, Urine (Dipstick) 70 mg/dL (Neg-Trace); RBC/HPF 0-3 HPF (0-3); Specific Gravity, Urine 1.018 (1.002-1.036); Squamous Epithelial 0-3 HPF (0-3); Urobilinogen Normal mg/dL (Less than 2); WBC/HPF 0-3 HPF (0-3)
[2021-02-24 06:02] LABS: Urine Culture Reflex No No
[2021-02-24] MEDS: levETIRAcetam in NS 500 MG in Premix Bag 1 BAG IVPB SCH ×2 (08:43→21:34)
[2021-02-24] MEDS: Pantoprazole 40 MG VIAL IVP SCH (08:44)
[2021-02-24] MEDS: Folic Acid 1 MG TAB PO SCH (08:45)
[2021-02-24] MEDS: Cholecalciferol 1,000 UNITS (25 MCG) TAB PO SCH (08:45)
[2021-02-24] MEDS: Aspirin 81 mg Enteric Coated Tablet PO SCH (08:45)
[2021-02-24] MEDS: Polyethylene Glycol 3350 17 GM Packet PO SCH (08:45)
[2021-02-24] MEDS: Zinc Sulfate 220 MG CAP PO SCH (08:46)
[2021-02-24] MEDS: Morphine 2 MG/ML VIAL SLOW IVP PRN (09:25)
[2021-02-24 12:41] LABS: Lactic Acid 1.8 mmol/L (0.5-2.2)
[2021-02-24] MEDS: hydrALAZINE 20 MG/ML VIAL SLOW IVP PRN (15:27)
[2021-02-24 21:08] LABS: Vancomycin, Trough 15.3 ug/mL
[2021-02-24] MEDS: Vancomycin 1 GM in Premix Bag 1 BAG IVPB SCH (21:35)
[2021-02-24 21:39] LABS: Hemoglobin 10.3 g/dL (12.0-16.0); Mean Corpuscular HGB CONC 32.2 g/dL (32.0-36.0); Mean Corpuscular Hemoglobin 35.2 pg (27.0-31.0); Mean Platelet Volume 8.3 fL (7.4-10.4); Platelet Count 193 thou/uL (130-400); RBC Distribution Width 14.8 % (11.5-14.5); Red Blood Cell (RBC) Count 2.93 mill/uL (4.20-5.40); White Blood Cell (WBC) Count 23.2 thou/uL (4.8-10.8)
[2021-02-24 21:50] LABS: Anion Gap 19 mmol/L (10-20); BUN (Urea Nitrogen) 34 mg/dL (9.8-20.1); Calc. Creatinine Clearance 73 mL/min (70-130); Calcium 8.7 mg/dL (7.8-10.44); Carbon Dioxide 14 mmol/L (23-31); Chloride 103 mmol/L (98-107); Glucose 86 mg/dL (83-110); Magnesium 1.7 mg/dL (1.6-2.6); Potassium 3.3 mmol/L (3.5-5.1); Sodium 133 mmol/L (136-145)
[2021-02-24] MEDS ORDERED: Metoprolol Tartrate 5 MG/5 ML VIAL IVP PRN (21:58)
[2021-02-24 22:00] LABS: Band 20 % (5-11); Hypochromia SLIGHT = 6-15 cells (100X) (0-5/hpf); Lymphocytes 1 % (21-51); MDiff Complete? YES; Macrocytosis SLIGHT = 6-15 cells (100X) (0-5/hpf); Monocytes 9 % (0-10); Neutrophil 70 % (42-75); Platelet Morphology Comment Appears Adequate
[2021-02-24 22:01] LABS: Troponin I 0.806 ng/mL (< 0.028)
[2021-02-25] MEDS: Hydrocortisone Sod Succ/PF 100 mg/2 ml Vial IVP SCH ×4 (03:51→21:15)
[2021-02-25] MEDS: Cefepime 2 GM in Sodium Chloride 0.9% 100 ML IVPB SCH ×2 (04:14→15:37)
[2021-02-25] MEDS: Amino Acids 4.25 %/Dextrose 5% 1,000 ML IV SCH ×2 (04:15→18:03)
[2021-02-25] MEDS ORDERED: Magnesium 2 GM/50 ML 2 GM in Premix Bag 1 BAG IVPB SCH (04:30)
[2021-02-25] MEDS ORDERED: Potassium Chloride 40 MEQ in Sodium Chloride 0.9% 250 ML 250 ML IVPB SCH (04:30)
[2021-02-25] MEDS: Atorvastatin Calcium 40 MG TAB PO SCH ×2 (05:05→21:15)
[2021-02-25] MEDS ORDERED: PROPOFOL 200 MG/20 ML VIAL ONE (08:32)
[2021-02-25] MEDS: Aspirin 81 mg Enteric Coated Tablet PO SCH (10:13)
[2021-02-25] MEDS: Cholecalciferol 1,000 UNITS (25 MCG) TAB PO SCH (10:13)
[2021-02-25] MEDS: Folic Acid 1 MG TAB PO SCH (10:14)
[2021-02-25] MEDS: Zinc Sulfate 220 MG CAP PO SCH (10:14)
[2021-02-25] MEDS: Polyethylene Glycol 3350 17 GM Packet PO SCH (10:14)
[2021-02-25] MEDS: Pantoprazole 40 MG VIAL IVP SCH (10:23)
[2021-02-25] MEDS: levETIRAcetam in NS 500 MG in Premix Bag 1 BAG IVPB SCH ×2 (10:23→21:14)
[2021-02-25] MEDS: Vancomycin 1 GM in Premix Bag 1 BAG IVPB SCH (23:14)
[2021-02-26] MEDS: Hydrocortisone Sod Succ/PF 100 mg/2 ml Vial IVP SCH ×4 (05:06→21:41)
[2021-02-26] MEDS: Cefepime 2 GM in Sodium Chloride 0.9% 100 ML IVPB SCH ×2 (05:10→15:47)
[2021-02-26] MEDS: Polyethylene Glycol 3350 17 GM Packet PO SCH (10:30)
[2021-02-26] MEDS: Folic Acid 1 MG TAB PO SCH (10:30)
[2021-02-26] MEDS: Cholecalciferol 1,000 UNITS (25 MCG) TAB PO SCH (10:30)
[2021-02-26] MEDS: Zinc Sulfate 220 MG CAP PO SCH (10:30)
[2021-02-26] MEDS: Aspirin 81 mg Enteric Coated Tablet PO SCH (10:30)
[2021-02-26 11:03] LABS: Hemoglobin 9.5 g/dL (12.0-16.0); Mean Corpuscular HGB CONC 31.1 g/dL (32.0-36.0); Mean Corpuscular Hemoglobin 34.3 pg (27.0-31.0); Mean Platelet Volume 8.8 fL (7.4-10.4); Platelet Count 186 thou/uL (130-400); RBC Distribution Width 15.2 % (11.5-14.5); Red Blood Cell (RBC) Count 2.78 mill/uL (4.20-5.40); White Blood Cell (WBC) Count 18.1 thou/uL (4.8-10.8)
[2021-02-26 11:06] LABS: ALT (SGPT) 86 U/L (8-55); AST (SGOT) 124 U/L (5-34); Albumin 2.2 g/dL (3.4-4.8); Alkaline Phosphatase 104 U/L (40-110); Anion Gap 12 mmol/L (10-20); BUN (Urea Nitrogen) 43 mg/dL (9.8-20.1); Bilirubin, Total 0.5 mg/dL (0.2-1.2); Calc. Creatinine Clearance 71 mL/min (70-130); Calcium 8.2 mg/dL (7.8-10.44); Carbon Dioxide 21 mmol/L (23-31); Chloride 104 mmol/L (98-107); Globulin 3.4 g/dL (2.4-3.5); Glucose 120 mg/dL (83-110); Protein, Total 5.6 g/dL (5.8-8.1); Sodium 135 mmol/L (136-145)
[2021-02-26] MEDS: Pantoprazole 40 MG VIAL IVP SCH (11:07)
[2021-02-26] MEDS: levETIRAcetam in NS 500 MG in Premix Bag 1 BAG IVPB SCH ×2 (11:08→21:40)
[2021-02-26 11:29] LABS: Potassium 1.9 mmol/L (3.5-5.1)
[2021-02-26] MEDS ORDERED: Potassium Chloride 20 MEQ in Premix Bag 1 BAG IVPB SCH (11:45)
[2021-02-26 11:48] LABS: Band 58 % (5-11); Dohle Bodies SLIGHT; Lymphocytes 7 % (21-51); MDiff Complete? YES; Macrocytosis MODERATE=16-30 cells (100X) (0-5/hpf); Metamyelocyte 1 % (0-0); Monocytes 4 % (0-10); Myelocyte 3 % (0-0); Neutrophil 27 % (42-75); Platelet Morphology Comment Appears Adequate; Polychromasia SLIGHT = 2-3 cells (100X) (0-2/hpf)
[2021-02-26] MEDS: Potassium Chloride 40 MEQ in Premix Bag 1 BAG IVPB SCH ×3 (11:52→16:51)
[2021-02-26 12:48] LABS: Magnesium 1.4 mg/dL (1.6-2.6)
[2021-02-26] MEDS ORDERED: Magnesium 2 GM/50 ML 2 GM in Premix Bag 1 BAG IVPB SCH (14:15)
[2021-02-26] MEDS ORDERED: Diltiazem 125 MG in Sodium Chloride 0.9% 100 ML IVPB SCH (17:45)
[2021-02-26 20:03] LABS: Potassium 3.3 mmol/L (3.5-5.1)
[2021-02-26] MEDS: Atorvastatin Calcium 40 MG TAB PO SCH (21:54)
[2021-02-26] MEDS: Vancomycin 1 GM in Premix Bag 1 BAG IVPB SCH (22:50)
[2021-02-26] MEDS: Amino Acids 4.25 %/Dextrose 5% 1,000 ML IV SCH (23:48)
[2021-02-27] MEDS: Hydrocortisone Sod Succ/PF 100 mg/2 ml Vial IVP SCH ×4 (04:04→20:56)
[2021-02-27] MEDS: Cefepime 2 GM in Sodium Chloride 0.9% 100 ML IVPB SCH ×2 (04:04→14:48)
[2021-02-27 06:20] LABS: Hemoglobin 9.4 g/dL (12.0-16.0); Mean Corpuscular Hemoglobin 33.1 pg (27.0-31.0); Mean Platelet Volume 8.6 fL (7.4-10.4); Platelet Count 167 thou/uL (130-400); RBC Distribution Width 15.3 % (11.5-14.5); Red Blood Cell (RBC) Count 2.84 mill/uL (4.20-5.40); White Blood Cell (WBC) Count 19.1 thou/uL (4.8-10.8)
[2021-02-27 06:41] LABS: Anion Gap 10 mmol/L (10-20); BUN (Urea Nitrogen) 40 mg/dL (9.8-20.1); Calc. Creatinine Clearance 71 mL/min (70-130); Calcium 8.1 mg/dL (7.8-10.44); Carbon Dioxide 20 mmol/L (23-31); Chloride 109 mmol/L (98-107); Glucose 133 mg/dL (83-110); Magnesium 1.7 mg/dL (1.6-2.6); Sodium 136 mmol/L (136-145)
[2021-02-27 06:44] LABS: Potassium 2.6 mmol/L (3.5-5.1)
[2021-02-27 06:48] LABS: Band 36 % (5-11); Lymphocytes 10 % (21-51); MDiff Complete? YES; Macrocytosis MODERATE=16-30 cells (100X) (0-5/hpf); Monocytes 12 % (0-10); Myelocyte 3 % (0-0); Neutrophil 39 % (42-75); Platelet Morphology Comment Appears Adequate; Polychromasia SLIGHT = 2-3 cells (100X) (0-2/hpf); Vacuoles SLIGHT
[2021-02-27] MEDS ORDERED: Potassium Chloride 40 MEQ in Premix Bag 1 BAG IVPB SCH (07:30)
[2021-02-27] MEDS: Folic Acid 1 MG TAB PO SCH (09:11)
[2021-02-27] MEDS: Aspirin 81 mg Enteric Coated Tablet PO SCH (09:11)
[2021-02-27] MEDS: Cholecalciferol 1,000 UNITS (25 MCG) TAB PO SCH (09:11)
[2021-02-27] MEDS: Polyethylene Glycol 3350 17 GM Packet PO SCH (09:12)
[2021-02-27] MEDS: Zinc Sulfate 220 MG CAP PO SCH (09:12)
[2021-02-27] MEDS: Potassium Chloride 20 MEQ in Premix Bag 1 BAG IVPB SCH ×6 (09:14→21:41)
[2021-02-27] MEDS: Pantoprazole 40 MG VIAL IVP SCH (09:14)
[2021-02-27] MEDS: levETIRAcetam in NS 500 MG in Premix Bag 1 BAG IVPB SCH ×2 (09:15→20:55)
[2021-02-27] MEDS: Atorvastatin Calcium 40 MG TAB PO SCH (20:02)
[2021-02-27] MEDS: Amino Acids 4.25 %/Dextrose 5% 1,000 ML IV SCH (20:41)
[2021-02-27] MEDS: Vancomycin 1 GM in Premix Bag 1 BAG IVPB SCH (23:10)
[2021-02-27] MEDS: Morphine 2 MG/ML VIAL SLOW IVP PRN (23:12)
[2021-02-27 23:41] LABS: Vancomycin, Trough 19.2 ug/mL
[2021-02-28] MEDS: Cefepime 2 GM in Sodium Chloride 0.9% 100 ML IVPB SCH ×3 (02:41→18:58)
[2021-02-28] MEDS: Hydrocortisone Sod Succ/PF 100 mg/2 ml Vial IVP SCH ×4 (02:41→22:01)
[2021-02-28 06:25] LABS: Hemoglobin 8.7 g/dL (12.0-16.0); Mean Corpuscular HGB CONC 32.1 g/dL (32.0-36.0); Mean Corpuscular Hemoglobin 35.7 pg (27.0-31.0); Mean Platelet Volume 8.8 fL (7.4-10.4); Platelet Count 169 thou/uL (130-400); RBC Distribution Width 15.3 % (11.5-14.5); Red Blood Cell (RBC) Count 2.44 mill/uL (4.20-5.40); White Blood Cell (WBC) Count 17.5 thou/uL (4.8-10.8)
[2021-02-28 06:42] LABS: Anion Gap 11 mmol/L (10-20); BUN (Urea Nitrogen) 45 mg/dL (9.8-20.1); Calc. Creatinine Clearance 74 mL/min (70-130); Calcium 7.8 mg/dL (7.8-10.44); Carbon Dioxide 16 mmol/L (23-31); Chloride 113 mmol/L (98-107); Glucose 134 mg/dL (83-110); Magnesium 1.3 mg/dL (1.6-2.6); Potassium 3.1 mmol/L (3.5-5.1); Sodium 137 mmol/L (136-145)
[2021-02-28 06:48] LABS: Band 46 % (5-11); Lymphocytes 2 % (21-51); MDiff Complete? YES; Macrocytosis MODERATE=16-30 cells (100X) (0-5/hpf); Metamyelocyte 1 % (0-0); Monocytes 12 % (0-10); Myelocyte 2 % (0-0); Neutrophil 37 % (42-75); Nucleated RBC 1 % (0); Toxic Granulation SLIGHT
[2021-02-28] MEDS ORDERED: Potassium Chloride 40 MEQ in Premix Bag 1 BAG IVPB SCH (09:15)
[2021-02-28] MEDS: Pantoprazole 40 MG VIAL IVP SCH (11:04)
[2021-02-28] MEDS: cloNIDine 0.1mg/24 Hour PATCH TD SCH ×2 (11:04→14:26)
[2021-02-28] MEDS: levETIRAcetam in NS 500 MG in Premix Bag 1 BAG IVPB SCH ×2 (11:04→21:58)
[2021-02-28] MEDS: Amino Acids 4.25 %/Dextrose 5% 1,000 ML IV SCH (11:04)
[2021-02-28] MEDS: Folic Acid 1 MG TAB PO SCH (11:05)
[2021-02-28] MEDS: Cholecalciferol 1,000 UNITS (25 MCG) TAB PO SCH (11:05)
[2021-02-28] MEDS: Polyethylene Glycol 3350 17 GM Packet PO SCH (11:05)
[2021-02-28] MEDS: Zinc Sulfate 220 MG CAP PO SCH (11:05)
[2021-02-28] MEDS: Aspirin 81 mg Enteric Coated Tablet PO SCH (11:05)
[2021-02-28] MEDS: Potassium Chloride 20 MEQ in Premix Bag 1 BAG IVPB SCH ×2 (11:58→14:18)
[2021-02-28 13:12] LABS: SARS-CoV-2 PCR by NAA Not Detected (NotDetected)
[2021-02-28] MEDS ORDERED: Magnesium Sulfate 3 GM in Sodium Chloride 0.9% 100 ML IVPB SCH (13:45)
[2021-03-01] MEDS: Atorvastatin Calcium 40 MG TAB PO SCH ×2 (00:53→21:16)
[2021-03-01] MEDS: Amino Acids 4.25 %/Dextrose 5% 1,000 ML IV SCH ×2 (00:54→13:59)
[2021-03-01] MEDS: Vancomycin 1 GM in Premix Bag 1 BAG IVPB SCH ×2 (02:34→22:31)
[2021-03-01 05:09] LABS: Anion Gap 9 mmol/L (10-20); BUN (Urea Nitrogen) 45 mg/dL (9.8-20.1); Calc. Creatinine Clearance 76 mL/min (70-130); Calcium 7.3 mg/dL (7.8-10.44); Carbon Dioxide 17 mmol/L (23-31); Chloride 114 mmol/L (98-107); Glucose 144 mg/dL (83-110); Magnesium 1.7 mg/dL (1.6-2.6); Sodium 138 mmol/L (136-145)
[2021-03-01] MEDS: Ketorolac Tromethamine 30 MG/ML VIAL IVP PRN (05:16)
[2021-03-01 05:18] LABS: Potassium 2.3 mmol/L (3.5-5.1)
[2021-03-01] MEDS ORDERED: Electrolyte Replacement Protocol FS PRN (06:00)
[2021-03-01] MEDS: Cefepime 2 GM in Sodium Chloride 0.9% 100 ML IVPB SCH ×2 (06:16→16:47)
[2021-03-01] MEDS: Hydrocortisone Sod Succ/PF 100 mg/2 ml Vial IVP SCH ×2 (08:55→21:17)
[2021-03-01] MEDS: levETIRAcetam in NS 500 MG in Premix Bag 1 BAG IVPB SCH ×2 (08:55→21:17)
[2021-03-01] MEDS: Pantoprazole 40 MG VIAL IVP SCH (08:56)
[2021-03-01] MEDS: Potassium Chloride 40 MEQ in Premix Bag 1 BAG IVPB SCH ×2 (08:57→13:05)
[2021-03-01] MEDS: Polyethylene Glycol 3350 17 GM Packet PO SCH (09:53)
[2021-03-01] MEDS: Folic Acid 1 MG TAB PO SCH (09:53)
[2021-03-01] MEDS: Cholecalciferol 1,000 UNITS (25 MCG) TAB PO SCH (09:53)
[2021-03-01] MEDS: Aspirin 81 mg Enteric Coated Tablet PO SCH (09:53)
[2021-03-01] MEDS: Zinc Sulfate 220 MG CAP PO SCH (09:53)
[2021-03-01] MEDS: Morphine 2 MG/ML VIAL SLOW IVP PRN (12:03)
[2021-03-01] MEDS ORDERED: Magnesium 2 GM/50 ML 2 GM in Premix Bag 1 BAG IVPB SCH (15:00)
[2021-03-01 19:40] LABS: Potassium 3.1 mmol/L (3.5-5.1)
[2021-03-02] MEDS ORDERED: Potassium Chloride 40 MEQ in Premix Bag 1 BAG IVPB SCH (02:00)
[2021-03-02] MEDS: Amino Acids 4.25 %/Dextrose 5% 1,000 ML IV SCH (03:58)
[2021-03-02 05:40] LABS: Magnesium 1.6 mg/dL (1.6-2.6)
[2021-03-02] MEDS ORDERED: Magnesium 2 GM/50 ML 2 GM in Premix Bag 1 BAG IVPB SCH (06:00)
[2021-03-02] MEDS: Cefepime 2 GM in Sodium Chloride 0.9% 100 ML IVPB SCH (06:17)
[2021-03-02] MEDS: Folic Acid 1 MG TAB PO SCH (08:53)
[2021-03-02] MEDS: Aspirin 81 mg Enteric Coated Tablet PO SCH (08:53)
[2021-03-02] MEDS: Cholecalciferol 1,000 UNITS (25 MCG) TAB PO SCH (08:53)
[2021-03-02] MEDS: Zinc Sulfate 220 MG CAP PO SCH (08:54)
[2021-03-02] MEDS: Polyethylene Glycol 3350 17 GM Packet PO SCH (08:54)
[2021-03-02] MEDS: Pantoprazole 40 MG VIAL IVP SCH (09:05)
[2021-03-02] MEDS: Hydrocortisone Sod Succ/PF 100 mg/2 ml Vial IVP SCH ×2 (09:05→21:38)
[2021-03-02] MEDS: levETIRAcetam in NS 500 MG in Premix Bag 1 BAG IVPB SCH ×2 (09:05→21:37)
[2021-03-02] MEDS ORDERED: Lidocaine 1% PF 5 ML VIAL ONE (11:11)
[2021-03-02] MEDS ORDERED: PROPOFOL 200 MG/20 ML VIAL ONE (11:11)
[2021-03-02 13:03] LABS: Anion Gap 12 mmol/L (10-20); BUN (Urea Nitrogen) 45 mg/dL (9.8-20.1); Calc. Creatinine Clearance 73 mL/min (70-130); Calcium 7.6 mg/dL (7.8-10.44); Carbon Dioxide 11 mmol/L (23-31); Chloride 118 mmol/L (98-107); Glucose 141 mg/dL (83-110); Potassium 3.5 mmol/L (3.5-5.1); Sodium 137 mmol/L (136-145)
[2021-03-02] MEDS ORDERED: Potassium Chloride 20 MEQ TAB PO SCH (13:15)
[2021-03-02 14:11] LABS: Hemoglobin 8.6 g/dL (12.0-16.0); Mean Corpuscular HGB CONC 32.3 g/dL (32.0-36.0); Mean Corpuscular Hemoglobin 35.1 pg (27.0-31.0); Mean Platelet Volume 8.9 fL (7.4-10.4); Platelet Count 173 thou/uL (130-400); RBC Distribution Width 15.6 % (11.5-14.5); Red Blood Cell (RBC) Count 2.46 mill/uL (4.20-5.40); White Blood Cell (WBC) Count 12.1 thou/uL (4.8-10.8)
[2021-03-02] MEDS ORDERED: Potassium Chloride 20 MEQ in Premix Bag 1 BAG IVPB SCH (14:30)
[2021-03-02 14:31] LABS: Band 81 % (5-11); Lymphocytes 2 % (21-51); MDiff Complete? YES; Macrocytosis SLIGHT = 6-15 cells (100X) (0-5/hpf); Metamyelocyte 3 % (0-0); Monocytes 3 % (0-10); Myelocyte 3 % (0-0); Neutrophil 8 % (42-75); Platelet Morphology Comment Appears Adequate
[2021-03-02] MEDS: Potassium Chloride 20 MEQ in Premix Bag 1 BAG IVPB SCH ×2 (14:31→16:28)
[2021-03-02] MEDS: Ketorolac Tromethamine 30 MG/ML VIAL IVP PRN (17:32)
[2021-03-02] MEDS ORDERED: Pancrelipase DR 12,000 1 CAP FS PRN (20:00)
[2021-03-02] MEDS ORDERED: Sodium Bicarbonate Tab 325 MG TAB PER TUBE PRN (20:00)
[2021-03-02] MEDS: Vancomycin 1 GM in Premix Bag 1 BAG IVPB SCH (21:23)
[2021-03-03] MEDS: Ketorolac Tromethamine 30 MG/ML VIAL IVP PRN (00:24)
[2021-03-03] MEDS: Atorvastatin Calcium 40 MG TAB PO SCH ×2 (00:32→21:31)
[2021-03-03] MEDS: Polyethylene Glycol 3350 17 GM Packet PO SCH (07:36)
[2021-03-03] MEDS: Folic Acid 1 MG TAB PO SCH (09:23)
[2021-03-03] MEDS: Cholecalciferol 1,000 UNITS (25 MCG) TAB PO SCH (09:23)
[2021-03-03] MEDS: Aspirin 81 mg Enteric Coated Tablet PO SCH (09:24)
[2021-03-03] MEDS: Zinc Sulfate 220 MG CAP PO SCH (09:24)
[2021-03-03] MEDS: levETIRAcetam in NS 500 MG in Premix Bag 1 BAG IVPB SCH ×2 (09:40→21:32)
[2021-03-03] MEDS: Pantoprazole 40 MG VIAL IVP SCH (09:57)
[2021-03-03] MEDS: Hydrocortisone Sod Succ/PF 100 mg/2 ml Vial IVP SCH ×2 (10:10→21:32)
[2021-03-03] MEDS ORDERED: Sodium Bicarbonate Tab 325 MG TAB PER TUBE PRN (21:30)
[2021-03-03] MEDS ORDERED: Pancrelipase DR 12,000 1 CAP FS PRN (21:30)
[2021-03-03] MEDS: Acetaminophen 325 MG TAB PO PRN (21:31)
[2021-03-03 21:57] LABS: Vancomycin, Trough 27.6 ug/mL
[2021-03-04] MEDS: Acetaminophen 325 MG TAB PO PRN ×3 (04:47→20:46)
[2021-03-04 05:37] LABS: Anion Gap 11 mmol/L (10-20); BUN (Urea Nitrogen) 55 mg/dL (9.8-20.1); Calc. Creatinine Clearance 55 mL/min (70-130); Calcium 8.1 mg/dL (7.8-10.44); Carbon Dioxide 15 mmol/L (23-31); Chloride 121 mmol/L (98-107); Glucose 182 mg/dL (83-110); Sodium 144 mmol/L (136-145)
[2021-03-04 05:41] LABS: Potassium 2.6 mmol/L (3.5-5.1)
[2021-03-04] MEDS ORDERED: Diltiazem HCl SR 60 mg Capsule PO SCH (06:15)
[2021-03-04] MEDS: Potassium Chloride 40 MEQ in Premix Bag 1 BAG IVPB SCH ×2 (06:17→11:14)
[2021-03-04] MEDS: HumaLOG 300 UNITS/3 ML VIAL SC PRN ×2 (06:21→13:45)
[2021-03-04] MEDS ORDERED: Aspirin Chewable 81 MG TAB PO SCH (09:00)
[2021-03-04 10:26] LABS: Vancomycin, Random 23.5 ug/mL (See Comment)
[2021-03-04] MEDS: Zinc Sulfate 220 MG CAP PO SCH (10:57)
[2021-03-04] MEDS: Cholecalciferol 1,000 UNITS (25 MCG) TAB PO SCH (10:57)
[2021-03-04] MEDS: Folic Acid 1 MG TAB PO SCH (10:57)
[2021-03-04] MEDS: Hydrocortisone Sod Succ/PF 100 mg/2 ml Vial IVP SCH (10:58)
[2021-03-04] MEDS: Pantoprazole 40 MG VIAL IVP SCH (11:02)
[2021-03-04] MEDS: levETIRAcetam in NS 500 MG in Premix Bag 1 BAG IVPB SCH ×2 (11:02→20:44)
[2021-03-04] MEDS: Polyethylene Glycol 3350 17 GM Packet PO SCH (11:13)
[2021-03-04] MEDS ORDERED: Apixaban 5 MG TAB PO SCH (17:12)
[2021-03-04 18:11] LABS: Hemoglobin 8.1 g/dL (12.0-16.0); Mean Corpuscular HGB CONC 32.1 g/dL (32.0-36.0); Mean Corpuscular Hemoglobin 34.6 pg (27.0-31.0); Platelet Count 178 thou/uL (130-400); RBC Distribution Width 15.6 % (11.5-14.5); Red Blood Cell (RBC) Count 2.33 mill/uL (4.20-5.40); White Blood Cell (WBC) Count 13.9 thou/uL (4.8-10.8)
[2021-03-04 18:22] LABS: Anion Gap 10 mmol/L (10-20); BUN (Urea Nitrogen) 60 mg/dL (9.8-20.1); Calc. Creatinine Clearance 56 mL/min (70-130); Calcium 8.3 mg/dL (7.8-10.44); Carbon Dioxide 15 mmol/L (23-31); Chloride 121 mmol/L (98-107); Glucose 157 mg/dL (83-110); Potassium 3.6 mmol/L (3.5-5.1); Sodium 142 mmol/L (136-145)
[2021-03-04 18:26] LABS: Anisocytosis SLIGHT = 6-15 cells (100X) (0-5/hpf); Band 18 % (5-11); Lymphocytes 3 % (21-51); MDiff Complete? YES; Macrocytosis SLIGHT = 6-15 cells (100X) (0-5/hpf); Monocytes 4 % (0-10); Neutrophil 75 % (42-75); Nucleated RBC 3 % (0); Platelet Morphology Comment Appears Adequate; Polychromasia SLIGHT = 2-3 cells (100X) (0-2/hpf)
[2021-03-04] MEDS: Atorvastatin Calcium 40 MG TAB PO SCH (20:44)
[2021-03-05] MEDS: Cholecalciferol 1,000 UNITS (25 MCG) TAB PO SCH (08:53)
[2021-03-05] MEDS: Aspirin Chewable 81 MG TAB PO SCH (08:53)
[2021-03-05] MEDS: Folic Acid 1 MG TAB PO SCH (08:54)
[2021-03-05] MEDS: Hydrocortisone Sod Succ/PF 100 mg/2 ml Vial IVP SCH (08:55)
[2021-03-05] MEDS: levETIRAcetam in NS 500 MG in Premix Bag 1 BAG IVPB SCH ×2 (08:55→23:29)
[2021-03-05] MEDS: Polyethylene Glycol 3350 17 GM Packet PO SCH ×2 (08:59→13:04)
[2021-03-05] MEDS: Pantoprazole 40 MG VIAL IVP SCH (08:59)
[2021-03-05] MEDS: Zinc Sulfate 220 MG CAP PO SCH (09:00)
[2021-03-05] MEDS ORDERED: Clopidogrel Bisulfate 75 MG TAB PO SCH ×2 (09:00→16:45)
[2021-03-05] MEDS ORDERED: Iopamidol-370 76% 500 ML 1 ML ONE (11:04)
[2021-03-05 14:17] LABS: Hemoglobin 7.8 g/dL (12.0-16.0); Mean Corpuscular HGB CONC 32.8 g/dL (32.0-36.0); Mean Corpuscular Hemoglobin 35.1 pg (27.0-31.0); Platelet Count 160 thou/uL (130-400); RBC Distribution Width 15.5 % (11.5-14.5); Red Blood Cell (RBC) Count 2.22 mill/uL (4.20-5.40); White Blood Cell (WBC) Count 12.6 thou/uL (4.8-10.8)
[2021-03-05 14:59] LABS: Band 76 % (5-11); Lymphocytes 4 % (21-51); MDiff Complete? YES; Macrocytosis SLIGHT = 6-15 cells (100X) (0-5/hpf); Monocytes 6 % (0-10); Neutrophil 14 % (42-75); Platelet Morphology Comment Appears Adequate; Polychromasia SLIGHT = 2-3 cells (100X) (0-2/hpf); Target Cells SLIGHT = 2-5 cells (100X) (0-1/hpf)
[2021-03-05] MEDS: Acetaminophen 325 MG TAB PO PRN ×2 (18:10→23:28)
[2021-03-05 19:11] LABS: Bacteria/HPF 2+ HPF (None Seen); Bilirubin Negative (Negative); Blood, Urine 1+ (Negative); Clarity Clear (Clear); Glucose, Urine (Dipstick) Normal (Negative); Ketone, Urine Negative (Negative); Leukocyte Negative Leu/uL (Negative); Nitrite Negative (Negative); Protein, Urine (Dipstick) 70 mg/dL (Neg-Trace); RBC/HPF 0-3 HPF (0-3); Specific Gravity, Urine 1.014 (1.002-1.036); Squamous Epithelial 0-3 HPF (0-3); Urobilinogen Normal mg/dL (Less than 2); WBC/HPF 0-3 HPF (0-3)
[2021-03-05 19:12] LABS: Urine Culture Reflex Yes Yes
[2021-03-05] MEDS: Atorvastatin Calcium 40 MG TAB PO SCH (23:29)
[2021-03-06] MEDS: Acetaminophen 325 MG TAB PO PRN ×2 (07:44→17:53)
[2021-03-06] MEDS: Hydrocortisone Sod Succ/PF 100 mg/2 ml Vial IVP SCH (08:52)
[2021-03-06] MEDS: Pantoprazole 40 MG VIAL IVP SCH (08:52)
[2021-03-06] MEDS: levETIRAcetam in NS 500 MG in Premix Bag 1 BAG IVPB SCH ×2 (08:52→21:47)
[2021-03-06] MEDS: Zinc Sulfate 220 MG CAP PO SCH (08:53)
[2021-03-06] MEDS: Cholecalciferol 1,000 UNITS (25 MCG) TAB PO SCH (08:53)
[2021-03-06] MEDS: Clopidogrel Bisulfate 75 MG TAB PO SCH (08:53)
[2021-03-06] MEDS: Aspirin Chewable 81 MG TAB PO SCH (08:53)
[2021-03-06] MEDS: Folic Acid 1 MG TAB PO SCH (08:53)
[2021-03-06] MEDS: Polyethylene Glycol 3350 17 GM Packet PO SCH ×2 (08:54→13:10)
[2021-03-06] MEDS ORDERED: PROPOFOL 20 ML ONE (11:26)
[2021-03-06] MEDS: Morphine 2 MG/ML VIAL SLOW IVP PRN (21:43)
[2021-03-06] MEDS: Atorvastatin Calcium 40 MG TAB PO SCH (21:46)
[2021-03-07] MEDS: Acetaminophen 325 MG TAB PO PRN ×2 (06:59→20:33)
[2021-03-07] MEDS: Hydrocortisone Sod Succ/PF 100 mg/2 ml Vial IVP SCH (08:52)
[2021-03-07] MEDS: Polyethylene Glycol 3350 17 GM Packet PO SCH (08:52)
[2021-03-07] MEDS: Pantoprazole 40 MG VIAL IVP SCH (08:52)
[2021-03-07] MEDS: Cholecalciferol 1,000 UNITS (25 MCG) TAB PO SCH (08:53)
[2021-03-07] MEDS: Zinc Sulfate 220 MG CAP PO SCH (08:53)
[2021-03-07] MEDS: Clopidogrel Bisulfate 75 MG TAB PO SCH (08:53)
[2021-03-07] MEDS: Aspirin Chewable 81 MG TAB PO SCH (08:53)
[2021-03-07] MEDS: Folic Acid 1 MG TAB PO SCH (08:54)
[2021-03-07] MEDS: levETIRAcetam in NS 500 MG in Premix Bag 1 BAG IVPB SCH ×2 (08:54→20:33)
[2021-03-07] MEDS: Atorvastatin Calcium 40 MG TAB PO SCH (20:33)
[2021-03-07] MEDS: Hydrocortisone 10 mg Tablet PO SCH (23:16)
[2021-03-07] MEDS: Morphine 2 MG/ML VIAL SLOW IVP PRN (23:16)
[2021-03-08] MEDS: Cholecalciferol 1,000 UNITS (25 MCG) TAB PO SCH (08:04)
[2021-03-08] MEDS: Acetaminophen 325 MG TAB PO PRN ×3 (08:04→18:01)
[2021-03-08] MEDS: Clopidogrel Bisulfate 75 MG TAB PO SCH (08:05)
[2021-03-08] MEDS: Folic Acid 1 MG TAB PO SCH (08:05)
[2021-03-08] MEDS: levETIRAcetam 500 MG TAB PO SCH ×2 (08:05→21:47)
[2021-03-08] MEDS: Polyethylene Glycol 3350 17 GM Packet PO SCH (08:05)
[2021-03-08] MEDS: Hydrocortisone 10 mg Tablet PO SCH ×2 (08:05→21:47)
[2021-03-08] MEDS: Zinc Sulfate 220 MG CAP PO SCH (08:05)
[2021-03-08] MEDS: Pantoprazole 40 MG VIAL IVP SCH (08:05)
[2021-03-08] MEDS: Aspirin Chewable 81 MG TAB PO SCH (08:05)
[2021-03-08] MEDS: HumaLOG 300 UNITS/3 ML VIAL SC PRN (13:49)
[2021-03-08 18:22] LABS: Hemoglobin 6.3 g/dL (12.0-16.0); Mean Corpuscular Hemoglobin 34.4 pg (27.0-31.0); Mean Platelet Volume 9.3 fL (7.4-10.4); Platelet Count 132 thou/uL (130-400); RBC Distribution Width 15.4 % (11.5-14.5); Red Blood Cell (RBC) Count 1.84 mill/uL (4.20-5.40); White Blood Cell (WBC) Count 6.9 thou/uL (4.8-10.8)
[2021-03-08 18:43] LABS: ALT (SGPT) 27 U/L (8-55); AST (SGOT) 22 U/L (5-34); Albumin 2.1 g/dL (3.4-4.8); Alkaline Phosphatase 124 U/L (40-110); Anion Gap 10 mmol/L (10-20); BUN (Urea Nitrogen) 57 mg/dL (9.8-20.1); Bilirubin, Total 0.3 mg/dL (0.2-1.2); Calc. Creatinine Clearance 57 mL/min (70-130); Calcium 7.1 mg/dL (7.8-10.44); Carbon Dioxide 20 mmol/L (23-31); Chloride 124 mmol/L (98-107); Globulin 3.3 g/dL (2.4-3.5); Glucose 153 mg/dL (83-110); Potassium 3.2 mmol/L (3.5-5.1); Protein, Total 5.4 g/dL (5.8-8.1); Sodium 151 mmol/L (136-145)
[2021-03-08 18:47] LABS: Anisocytosis SLIGHT = 6-15 cells (100X) (0-5/hpf); Band 28 % (5-11); Lymphocytes 6 % (21-51); MDiff Complete? YES; Macrocytosis SLIGHT = 6-15 cells (100X) (0-5/hpf); Monocytes 3 % (0-10); Neutrophil 63 % (42-75); Platelet Morphology Comment Appears Adequate; Polychromasia MODERATE = 3-4 cells (100X) (0-2/hpf)
[2021-03-08] MEDS: Dextrose 5% in Water 1,000 ML IV SCH (21:40)
[2021-03-08 21:44] LABS: Hemoglobin 7.1 g/dL (12.0-16.0)
[2021-03-08] MEDS: Atorvastatin Calcium 40 MG TAB PO SCH (21:46)
[2021-03-08] MEDS: HYDROcodone/Acetaminophen 7.5/325 mg Tablet PER TUBE PRN (21:46)
[2021-03-08] MEDS ORDERED: Potassium Chloride 40 MEQ in Premix Bag 1 BAG IVPB SCH (23:00)
[2021-03-08 23:18] LABS: SARS-CoV-2 PCR by NAA Not Detected (NotDetected)
[2021-03-09] MEDS: HumaLOG 300 UNITS/3 ML VIAL SC PRN ×2 (00:14→05:33)
[2021-03-09 06:12] LABS: Hemoglobin 6.3 g/dL (12.0-16.0); Platelet Count 124 thou/uL (130-400)
[2021-03-09 06:33] LABS: Anion Gap 10 mmol/L (10-20); BUN (Urea Nitrogen) 53 mg/dL (9.8-20.1); Calc. Creatinine Clearance 61 mL/min (70-130); Carbon Dioxide 22 mmol/L (23-31); Chloride 121 mmol/L (98-107); Glucose 157 mg/dL (83-110); Potassium 4.1 mmol/L (3.5-5.1); Sodium 149 mmol/L (136-145)
[2021-03-09] MEDS: Folic Acid 1 MG TAB PO SCH (11:00)
[2021-03-09] MEDS: Clopidogrel Bisulfate 75 MG TAB PO SCH (11:00)
[2021-03-09] MEDS: Zinc Sulfate 220 MG CAP PO SCH (11:00)
[2021-03-09] MEDS: Aspirin Chewable 81 MG TAB PO SCH (11:00)
[2021-03-09] MEDS: Hydrocortisone 10 mg Tablet PO SCH ×2 (11:00→20:33)
[2021-03-09] MEDS: Acetaminophen 325 MG TAB PO PRN ×2 (11:01→15:52)
[2021-03-09] MEDS: Polyethylene Glycol 3350 17 GM Packet PO SCH (11:03)
[2021-03-09] MEDS: Cholecalciferol 1,000 UNITS (25 MCG) TAB PO SCH (11:13)
[2021-03-09] MEDS: Pantoprazole 40 MG VIAL IVP SCH ×2 (11:39→20:33)
[2021-03-09] MEDS: levETIRAcetam 500 MG TAB PO SCH (11:40)
[2021-03-09] MEDS: Dextrose 5% in Water 1,000 ML IV SCH ×2 (12:22→22:42)
[2021-03-09] MEDS: levETIRAcetam 500 mg/5 ml Oral Solution PO SCH ×2 (12:52→20:33)
[2021-03-09] MEDS: Atorvastatin Calcium 40 MG TAB PO SCH (20:33)
[2021-03-09] MEDS: HYDROcodone/Acetaminophen 7.5/325 mg Tablet PER TUBE PRN (20:33)
[2021-03-09] MEDS: Lidocaine 5% Patch TD SCH (20:49)
[2021-03-10] MEDS: Acetaminophen 325 MG TAB PO PRN (04:45)
[2021-03-10] MEDS: Dextrose 5% in Water 1,000 ML IV SCH ×2 (04:56→18:02)
[2021-03-10 05:51] LABS: Hemoglobin 8.5 g/dL (12.0-16.0); Platelet Count 90 thou/uL (130-400)
[2021-03-10 06:20] LABS: Anion Gap 7 mmol/L (10-20); BUN (Urea Nitrogen) 43 mg/dL (9.8-20.1); Calc. Creatinine Clearance 67 mL/min (70-130); Calcium 7.2 mg/dL (7.8-10.44); Carbon Dioxide 23 mmol/L (23-31); Chloride 116 mmol/L (98-107); Glucose 145 mg/dL (83-110); Potassium 4.1 mmol/L (3.5-5.1); Sodium 142 mmol/L (136-145)
[2021-03-10] MEDS: Cholecalciferol 1,000 UNITS (25 MCG) TAB PO SCH (11:07)
[2021-03-10] MEDS: levETIRAcetam 500 mg/5 ml Oral Solution PO SCH ×2 (11:07→22:15)
[2021-03-10] MEDS: Clopidogrel Bisulfate 75 MG TAB PO SCH (11:07)
[2021-03-10] MEDS: Hydrocortisone 10 mg Tablet PO SCH ×2 (11:08→22:07)
[2021-03-10] MEDS: Aspirin Chewable 81 MG TAB PO SCH (11:08)
[2021-03-10] MEDS: Zinc Sulfate 220 MG CAP PO SCH (11:08)
[2021-03-10] MEDS: Pantoprazole 40 MG VIAL IVP SCH ×2 (11:09→22:15)
[2021-03-10] MEDS: Folic Acid 1 MG TAB PO SCH (11:09)
[2021-03-10] MEDS: Transdermal Patch Removal TOP SCH (11:09)
[2021-03-10] MEDS: Atorvastatin Calcium 40 MG TAB PO SCH (22:06)
[2021-03-10] MEDS: HYDROcodone/Acetaminophen 7.5/325 mg Tablet PER TUBE PRN (22:08)
[2021-03-10] MEDS: Lidocaine 5% Patch TD SCH (22:14)
[2021-03-11 06:20] LABS: Hemoglobin 8.5 g/dL (12.0-16.0); Platelet Count 81 thou/uL (130-400)
[2021-03-11 06:37] LABS: Anion Gap 12 mmol/L (10-20); BUN (Urea Nitrogen) 45 mg/dL (9.8-20.1); Calc. Creatinine Clearance 67 mL/min (70-130); Calcium 7.3 mg/dL (7.8-10.44); Carbon Dioxide 22 mmol/L (23-31); Chloride 111 mmol/L (98-107); Glucose 160 mg/dL (83-110); Potassium 3.9 mmol/L (3.5-5.1); Sodium 141 mmol/L (136-145)
[2021-03-11] MEDS ORDERED: Morphine 2 MG/ML VIAL SLOW IVP PRN (08:19)
[2021-03-11] MEDS: Transdermal Patch Removal TOP SCH (09:25)
[2021-03-11] MEDS: levETIRAcetam 500 mg/5 ml Oral Solution PO SCH ×2 (09:25→20:41)
[2021-03-11] MEDS: Zinc Sulfate 220 MG CAP PO SCH (09:26)
[2021-03-11] MEDS: Hydrocortisone 10 mg Tablet PO SCH ×2 (09:26→20:41)
[2021-03-11] MEDS: Pantoprazole 40 MG VIAL IVP SCH ×2 (09:26→20:42)
[2021-03-11] MEDS: Folic Acid 1 MG TAB PO SCH (09:26)
[2021-03-11] MEDS: Acetaminophen 325 MG TAB PO PRN ×2 (09:27→16:41)
[2021-03-11] MEDS: Cholecalciferol 1,000 UNITS (25 MCG) TAB PO SCH (09:28)
[2021-03-11] MEDS: Clopidogrel Bisulfate 75 MG TAB PO SCH (09:29)
[2021-03-11] MEDS: Diphenoxylate HCl/Atropine Tablet PO SCH (09:34)
[2021-03-11 09:38] LABS: Mean Corpuscular HGB CONC 32.3 g/dL (32.0-36.0); Mean Corpuscular Hemoglobin 32.7 pg (27.0-31.0); Platelet Count 81 thou/uL (130-400); RBC Distribution Width 18.7 % (11.5-14.5); Red Blood Cell (RBC) Count 2.75 mill/uL (4.20-5.40); White Blood Cell (WBC) Count 5.1 thou/uL (4.8-10.8)
[2021-03-11 10:02] LABS: Band 34 % (5-11); Eosinophils 4 % (0-10); Lymphocytes 4 % (21-51); MDiff Complete? YES; Monocytes 6 % (0-10); Neutrophil 52 % (42-75); Platelet Morphology Comment Appears Decreased
[2021-03-11] MEDS: Dextrose 5% in Water 1,000 ML IV SCH (18:39)
[2021-03-11] MEDS ORDERED: Sodium Chloride 0.9% 500 ML IV SCH (19:00)
[2021-03-11] MEDS: Atorvastatin Calcium 40 MG TAB PO SCH (20:41)
[2021-03-11] MEDS: Lidocaine 5% Patch TD SCH (20:42)
[2021-03-11] MEDS: HYDROcodone/Acetaminophen 7.5/325 mg Tablet PER TUBE PRN (20:43)
[2021-03-12] MEDS: Acetaminophen 325 MG TAB PO PRN ×2 (04:30→10:03)
[2021-03-12] MEDS: HYDROcodone/Acetaminophen 7.5/325 mg Tablet PER TUBE PRN ×2 (06:18→13:08)
[2021-03-12] MEDS: Cholecalciferol 1,000 UNITS (25 MCG) TAB PO SCH (10:02)
[2021-03-12] MEDS: levETIRAcetam 500 mg/5 ml Oral Solution PO SCH (10:05)
[2021-03-12] MEDS: Hydrocortisone 10 mg Tablet PO SCH (10:05)
[2021-03-12] MEDS: Folic Acid 1 MG TAB PO SCH (10:05)
[2021-03-12] MEDS: Zinc Sulfate 220 MG CAP PO SCH (10:05)
[2021-03-12] MEDS: Pantoprazole 40 MG VIAL IVP SCH (10:06)
[2021-03-12] MEDS: Transdermal Patch Removal TOP SCH (10:25)
[2021-03-12] MEDS: Diphenoxylate HCl/Atropine Tablet PO SCH (10:25)
[2021-03-12] MEDS ORDERED: BIOTENE MOUTH SPRAY 44.3 ML MM PRN (11:14)
[2021-03-12 11:53] VITALS: BP 112/56; TEMP 97.9
[2021-03-12] MEDS: Dextrose 5% in Water 1,000 ML IV SCH (13:09)
[2021-03-12] MEDS ORDERED: Morphine 2 MG/ML VIAL SLOW IVP SCH (14:30)
== END 2021-03-12 15:33 | disposition hospice, inpatient (51) | DRG 871 ==
LOC: ERS 17:38 → ERHOLD 19:40 → PACU-TCU 02-19 02:26 → 2NO 02-19 15:26 → 3SE 02-24 18:33
PROVIDERS: ADMIT Internal Medicine; ATTEND Family Medicine
PROC: 3E033XZ Introduction of Vasopressor into Peripheral Vein, Percutaneous Approach (ICD-10-PCS; principal; 2021-02-18)
PROC: 06HY33Z Insertion of Infusion Device into Lower Vein, Percutaneous Approach (ICD-10-PCS; 2021-02-18)
PROC: 02HV33Z Insertion of Infusion Device into Superior Vena Cava, Percutaneous Approach (ICD-10-PCS; 2021-02-25)
PROC: B548ZZA Ultrasonography of Superior Vena Cava, Guidance (ICD-10-PCS; 2021-02-25)
PROC: B24BZZ4 Ultrasonography of Heart with Aorta, Transesophageal (ICD-10-PCS; 2021-02-25)
PROC: 0DH63UZ Insertion of Feeding Device into Stomach, Percutaneous Approach (ICD-10-PCS; 2021-03-02)
PROC: 30233N1 Transfusion of Nonautologous Red Blood Cells into Peripheral Vein, Percutaneous Approach (ICD-10-PCS; 2021-03-09)
DX: A41.51 Sepsis due to Escherichia coli [E. coli] (principal); R65.21 Severe sepsis with septic shock; I63.511 Cerebral infarction due to unspecified occlusion or stenosis of right middle cerebral artery; I21.A1 Myocardial infarction type 2; K55.039 Acute (reversible) ischemia of large intestine, extent unspecified; N17.0 Acute kidney failure with tubular necrosis; G93.41 Metabolic encephalopathy; I50.31 Acute diastolic (congestive) heart failure; K57.32 Diverticulitis of large intestine without perforation or abscess without bleeding; K56.7 Ileus, unspecified; E27.40 Unspecified adrenocortical insufficiency; R47.01 Aphasia; E87.1 Hypo-osmolality and hyponatremia; G81.94 Hemiplegia, unspecified affecting left nondominant side; I13.0 Hypertensive heart and chronic kidney disease with heart failure and stage 1 through stage 4 chronic kidney disease, or unspecified chronic kidney disease; Z66 Do not resuscitate; Z20.822 Contact with and (suspected) exposure to COVID-19; M06.9 Rheumatoid arthritis, unspecified; G40.909 Epilepsy, unspecified, not intractable, without status epilepticus; E78.5 Hyperlipidemia, unspecified; E78.00 Pure hypercholesterolemia, unspecified; Z96.653 Presence of artificial knee joint, bilateral; M47.815 Spondylosis without myelopathy or radiculopathy, thoracolumbar region; M48.062 Spinal stenosis, lumbar region with neurogenic claudication; N18.9 Chronic kidney disease, unspecified; E11.22 Type 2 diabetes mellitus with diabetic chronic kidney disease; E11.649 Type 2 diabetes mellitus with hypoglycemia without coma; T81.89XA Other complications of procedures, not elsewhere classified, initial encounter; Y83.8 Other surgical procedures as the cause of abnormal reaction of the patient, or of later complication, without mention of misadventure at the time of the procedure; D53.9 Nutritional anemia, unspecified; E11.65 Type 2 diabetes mellitus with hyperglycemia; E87.6 Hypokalemia; R29.711 NIHSS score 11; R29.810 Facial weakness; E83.42 Hypomagnesemia; E83.39 Other disorders of phosphorus metabolism; G93.89 Other specified disorders of brain; E87.70 Fluid overload, unspecified; R13.12 Dysphagia, oropharyngeal phase; I35.0 Nonrheumatic aortic (valve) stenosis; Z88.1 Allergy status to other antibiotic agents; Z88.2 Allergy status to sulfonamides; Z88.8 Allergy status to other drugs, medicaments and biological substances; Z79.899 Other long term (current) drug therapy; Z79.82 Long term (current) use of aspirin; Z87.891 Personal history of nicotine dependence; Z95.2 Presence of prosthetic heart valve; Z98.890 Other specified postprocedural states; Z88.0 Allergy status to penicillin
CPT/HCPCS: 36415; 36416; 36430; 36569; 70450; 70551; 71045; 74018; 74177; 76770; 80048; 80053; 80069; 80177; 80202; 81001; 82140; 82274; 82306; 82553; 82570; 82607; 82746; 82805; 83605; 83735; 84100; 84133; 84134; 84300; 84443; 84484; 84550; 85007; 85014; 85018; 85025; 85027; 85049; 85060; 86850; 86900; 86901; 87040; 87077; 87086; 87103; 87186; 87324; 87449; 93005; 93010; 93306; 93312; 93880; 94640; 95712; 95816; 95819; 95957; 96374; 96375; C1751; C9113; J0290; J0360; J0692; J0696; J1644; J1650; J1720; J1815; J1885; J1940; J1953; J2060; J2270; J2405; J2704; J3370; J3475; J3480; J3490; J7030; J7050; J7070; J7620; P9016; P9047; Q9967; U0003; U0005

== ENCOUNTER 2021-03-12 15:41 | Inpatient (IN) | payer OTHER ==
[2021-03-12 15:55] VITALS: BMI 26.0
[2021-03-12] MEDS ORDERED: Morphine 4 MG/ML VIAL SLOW IVP SCH ×2 (16:00→22:00)
[2021-03-12] MEDS ORDERED: Lorazepam 2 MG/ML VIAL SLOW IVP SCH ×2 (16:00→20:00)
[2021-03-12 16:10] VITALS: BP 140/98; TEMP 97.4
[2021-03-12] MEDS ORDERED: Morphine 4 MG/ML VIAL SLOW IVP PRN ×2 (16:11)
[2021-03-12] MEDS ORDERED: Haloperidol Lactate 5 MG/ML VIAL SLOW IVP PRN (16:15)
[2021-03-12] MEDS ORDERED: Hyoscyamine Sulfate SL 0.125 mg Tablet SL PRN (16:15)
[2021-03-12] MEDS ORDERED: Ondansetron PF 4 MG/2 ML Vial IVP PRN (16:15)
[2021-03-12] MEDS ORDERED: Senokot 8.6 MG TAB PER TUBE PRN (16:15)
[2021-03-12] MEDS ORDERED: Lorazepam 2 MG/ML VIAL SLOW IVP PRN (16:15)
[2021-03-13] MEDS ORDERED: predniSONE 20 MG TAB PER TUBE SCH (09:00)
== END 2021-03-12 19:27 | disposition expired | DRG 951 ==
LOC: 3SE 15:41 → ONC 18:13
PROVIDERS: ADMIT Family Medicine; ATTEND Family Medicine
DX: Z51.5 Encounter for palliative care (principal); Z66 Do not resuscitate; A41.9 Sepsis, unspecified organism; R65.21 Severe sepsis with septic shock; N17.0 Acute kidney failure with tubular necrosis; E27.40 Unspecified adrenocortical insufficiency; M48.54XA Collapsed vertebra, not elsewhere classified, thoracic region, initial encounter for fracture; M06.9 Rheumatoid arthritis, unspecified; G40.909 Epilepsy, unspecified, not intractable, without status epilepticus; I10 Essential (primary) hypertension; E78.5 Hyperlipidemia, unspecified; Z96.653 Presence of artificial knee joint, bilateral; M48.062 Spinal stenosis, lumbar region with neurogenic claudication; T81.89XA Other complications of procedures, not elsewhere classified, initial encounter; Y83.8 Other surgical procedures as the cause of abnormal reaction of the patient, or of later complication, without mention of misadventure at the time of the procedure; Z95.2 Presence of prosthetic heart valve; Z88.1 Allergy status to other antibiotic agents; Z88.2 Allergy status to sulfonamides; Z88.8 Allergy status to other drugs, medicaments and biological substances; Z79.899 Other long term (current) drug therapy; Z79.82 Long term (current) use of aspirin; Z98.1 Arthrodesis status; Z98.890 Other specified postprocedural states
CPT/HCPCS: J2060; J2270